=== PATIENT | female | born 1980 | race Caucasian/White ===

== ENCOUNTER 2019-11-25 17:33 | Emergency (ER) | payer SELFPAY ==
--- NOTE | 2019-11-25 17:44 | ED_ITS ---
Entered by Angelique Ga, acting as scribe for Nov 25, 2019 17:33 Documented by User: Arely Ortiz 11/26/19 00:17 HPI - General Adult General: Chief complaint: Abdominal Pain Stated complaint: ABD PAIN Time Seen by Provider: 11/25/19 17:50 Review of Systems GI: Reports: abdominal pain PFS ED PFSH: Medical History Anxiety Hypertension Social History Smoking and tobacco status: current every day smoker Course Vital Signs: Vital signs: Vital Signs Temperature 98.2 F 11/26/19 00:01 Pulse Rate 81 11/26/19 00:01 Respiratory Rate 18 11/26/19 00:01 Blood Pressure 189/124 11/26/19 00:01 Pulse Oximetry 97 11/26/19 00:01 MDM - General Adult MDM Narrative: Medical decision making narrative: Patient comes in complaining of right upper quadrant abdominal pain but also complained of sharp right lower quadrant pain. Ultrasound of her pelvis reveals no evidence of ovarian torsion or cyst. CT scan does not show appendicitis. Patient CT showed a possible dilated common bile duct but ultrasound did not cooperate this. I called the [facility] radiologist to reconcile this and he states he believes the ultrasound is more accurate and will amend his CT scan. The patient's liver enzymes and lipase are all normal. I reviewed the entire case with Dr. Méndez who states he believes the patient can go home and does not need an [facility]. He will see the patient in his clinic tomorrow. I have reviewed this plan with the patient and she is in agreement. She declines any further testing and would like to be discharged. Lab Data: Labs: Lab Results 11/25/19 11/25/19 11/25/19 Range/Units 17:53 17:53 18:02 WBC 7.8 (4.0-10.0) 10^3/ uL RBC 5.06 (4.1-5.3) 10^6/u L Hgb 17.0 H (11.5-15.3) g/dL Hct 51.5 H (37.0-47.0) % MCV 101.8 H (81-99) fL MCH 33.6 (28.0-34.0) pg MCHC 33.0 (30.0-36.0) g/dL RDW 12.3 (12.1-15.1) % Plt Count 275 (130-400) 10^3/c mm MPV 10.4 (7.4-10.4) fL Neut % (Auto) 64.1 % Lymph % (Auto) 27.0 % [place] % (Auto) 7.4 % Eos % (Auto) 0.9 % Baso % (Auto) 0.5 % Neut # (Auto) 5.0 (1.8-7.7) 10^3/u L Lymph # (Auto) 2.1 (0.8-4.8) 10^3/u L [place] # (Auto) 0.6 (0.2-0.9) 10^3/u L Eos # (Auto) 0.1 (0.0-0.8) 10^3/u L Baso # (Auto) 0.0 (0.0-0.1) 10^3/u L Nucleated RBC % (a uto) 0 % Nucleated RBCs # 0.0 /100WBC Sodium (136-145) mmol/L Potassium (3.5-5.1) mmol/L Chloride (98-107) mmol/L Carbon Dioxide (22-29) mmol/L Anion Gap (5-19) BUN (6-20) mg/dL Creatinine (0.5-0.9) mg/dL GFR Calculation (90-130) mL/min Glucose (65-115) mg/dL Calcium (8.5-10.5) mg/dL Total Bilirubin (0.15-1.2) mg/dL AST (0-32) U/L ALT (0-33) U/L Alkaline Phosphata se (35-105) IU/L Total Protein (6.6-8.7) g/dL Albumin (3.5-5.2) g/dL Globulin (1.3-4.6) g/dL Lipase (13-60) U/L HCG, Qual Negative (Negative) Urine Color Yellow (Yellow) Urine Appearance Clear (CLEAR) Urine pH 7 (5-7) Ur Specific Gravit y 1.010 (1.005-1.030) Urine Protein Neg (Negative) Urine Glucose (UA) Norm (Normal) Urine Ketones Negative (Negative) Urine Occult Blood Neg (Negative) Urine Nitrate Negative (Negative) Urine Bilirubin Neg (NEGATIVE) Urine Urobilinogen Norm (Negative) mg/dL Ur Leukocyte Elise ase Negative (Negative) 11/25/19 Range/Units 18:02 WBC (4.0-10.0) 10^3/ uL RBC (4.1-5.3) 10^6/u L Hgb (11.5-15.3) g/dL Hct (37.0-47.0) % MCV (81-99) fL MCH (28.0-34.0) pg MCHC (30.0-36.0) g/dL RDW (12.1-15.1) % Plt Count (130-400) 10^3/c mm MPV (7.4-10.4) fL Neut % (Auto) % Lymph % (Auto) % [place] % (Auto) % Eos % (Auto) % Baso % (Auto) % Neut # (Auto) (1.8-7.7) 10^3/u L Lymph # (Auto) (0.8-4.8) 10^3/u L [place] # (Auto) (0.2-0.9) 10^3/u L Eos # (Auto) (0.0-0.8) 10^3/u L Baso # (Auto) (0.0-0.1) 10^3/u L Nucleated RBC % (a uto) % Nucleated RBCs # /100WBC Sodium 139 (136-145) mmol/L Potassium 4.0 (3.5-5.1) mmol/L Chloride 100 (98-107) mmol/L Carbon Dioxide 28 (22-29) mmol/L Anion Gap 15.0 (5-19) BUN 16 (6-20) mg/dL Creatinine 0.8 (0.5-0.9) mg/dL GFR Calculation 79.0 L (90-130) mL/min Glucose 89 (65-115) mg/dL Calcium 10.1 (8.5-10.5) mg/dL Total Bilirubin 0.4 (0.15-1.2) mg/dL AST 23 (0-32) U/L ALT 18 (0-33) U/L Alkaline Phosphata se 99 (35-105) IU/L Total Protein 8.1 (6.6-8.7) g/dL Albumin 4.8 (3.5-5.2) g/dL Globulin 3.3 (1.3-4.6) g/dL Lipase 26 (13-60) U/L HCG, Qual (Negative) Urine Color (Yellow) Urine Appearance (CLEAR) Urine pH (5-7) Ur Specific Gravit y (1.005-1.030) Urine Protein (Negative) Urine Glucose (UA) (Normal) Urine Ketones (Negative) Urine Occult Blood (Negative) Urine Nitrate (Negative) Urine Bilirubin (NEGATIVE) Urine Urobilinogen (Negative) mg/dL Ur Leukocyte Elise ase (Negative) Imaging Data^: CT Abd/Pel: Radiologist's impression: [place] [address] CT Scan Report Signed Patient: Roxanne Knowles #: [id number] : 1980Acct#:[id number] Age/Sex: 39 / FADM Date: 11/25/19 Loc: ERRoom/Bed: Attending Dr: Ordering Provider/Ordering MD: Arely Ortiz DO Date of Service: 11/25/19 Procedure(s): CT abdomen pelvis w con* [id number] Accession Number(s): [id number] Report Number: [id number] PROCEDURE INFORMATION: Exam: CT Abdomen And Pelvis With Contrast Exam date and time: 11/25/2019 8:17 PM Age: 39 years old Clinical indication: Abdominal pain; Localized; Right; Patient HX: C/O R sided abd pain w n/v TECHNIQUE: Imaging protocol: Computed tomography of the abdomen and pelvis with intravenous contrast. Total DLP: 734.82 mGy-cm Radiation optimization: All CT scans at this facility use at least one of these dose optimization techniques: automated exposure control; mA and/or kV adjustment per patient size (includes targeted exams where dose is matched to clinical indication); or iterative reconstruction. Contrast material: OMNI 300; Contrast volume: 95 ml; Contrast route: 20G; COMPARISON: US pelvic complete* [id number] 11/25/2019 6:56 PM FINDINGS: Mild patchy atelectasis at bilateral lung bases. Minimal intrahepatic biliary dilation. The common bile duct is dilated to 1.1 cm maximally. No obstructing stone or mass directly observed. The gallbladder, spleen, pancreas, adrenal glands, and right kidney are unremarkable. There is a 1 cm stone in the left mid kidney. A normal-appearing appendix is seen in the right lower quadrant. No evidence of bowel obstruction. No evidence of diverticulitis. No free intraperitoneal air identified. Trace free fluid the pelvis, which may be physiologic. The bladder and uterus are unremarkable. Prominent follicle in the left ovary. The abdominal aorta is nonaneurysmal. Mild degenerative disc disease at L4-L5. CT/CT abdomen pelvis w con* [id number] IMPRESSION: 1. Intrahepatic and extrahepatic biliary dilation, overall mild. No cause directly observed. Radiation Dose CTDIVOL = (mGy): DLP = 734.82 (mGy-cm) US: Radiologist's impression: [address] [place] [address] Ultrasound Report Signed Patient: Roxanne Knowles #: [id number] : 1980Acct#:[id number] Age/Sex: 39 / FADM Date: 11/25/19 Loc: ERRoom/Bed: Attending Dr: Ordering Provider/Ordering MD: Arely Ortiz DO Date of Service: 11/25/19 Procedure(s): US pelvic complete* [id number] Accession Number(s): [id number] Report Number: [id number] PROCEDURE INFORMATION: Exam: US Pelvis Complete, Transabdominal Exam date and time: 11/25/2019 6:38 PM Age: 39 years old Clinical indication: Abdominal pain; Right lower quadrant TECHNIQUE: Imaging protocol: Real-time transabdominal pelvic ultrasound with image documentation. Complete exam. COMPARISON: US pelvic with transvaginal 04/23/2015 11:00 AM FINDINGS: The uterus is anteverted and measures 7.7 cm x 4.7 cm by 7.2 cm. Endometrial stripe thickness within normal limits at roughly 1.3 cm. The right ovary measures 2.9 cm x 2.2 cm by 1.8 cm and is unremarkable. Vascular flow is detected in the right ovary. The left ovary measures 3.0 cm by 2.6 cm x 2.2 cm and is unremarkable. Vascular flow is detected in the left ovary. No free fluid identified in the pelvic cul-de-sac. The bladder is unremarkable as shown. US/US pelvic complete* [id number] IMPRESSION: 1. The uterus and ovaries are sonographically unremarkable. bladder US: Radiologist's impression: [address] [place] [address] Ultrasound Report Signed with Addenda Patient: Roxanne Knowles #: [id number] : 1980Acct#:[id number] Age/Sex: 39 / FADM Date: 11/25/19 Loc: ERRoom/Bed: Attending Dr: Ordering Provider/Ordering MD: Kraig Le DO Date of Service: 11/25/19 Procedure(s): US gall bladder [id number] Accession Number(s): [id number] Report Number: [id number] ADDENDUM US/US gall bladder [id number] Overall, biliary obstruction is considered unlikely. Addendum Dictated By: Philippe Melo MD Addendum Signed By: Philippe Melo MDSigned Date/Time:11/25/19 2326 Addendum Cosigned By: PROCEDURE INFORMATION: Exam: US Abdomen Limited, Right Upper Quadrant Exam date and time: 11/25/2019 6:38 PM Age: 39 years old Clinical indication: Abdominal pain; Generalized; Additional info: Abd pain - ruq TECHNIQUE: Imaging protocol: Real-time ultrasound of the abdomen with image documentation. Examination was focused on the right upper quadrant. COMPARISON: No relevant prior studies available. FINDINGS: Visualized portions of the inferior vena cava are unremarkable. Visualized portions of the liver demonstrate normal contour and echogenicity. No intrahepatic or extrahepatic biliary dilation identified. The common bile duct is within normal limits for caliber at 0.4 cm. There is a 1.8 cm stone in the body of the gallbladder. No sludge, gallbladder wall thickening, or pericholecystic fluid identified. Visualized portion of the pancreas is unremarkable. The right kidney measures 9.8 cm in length and is unremarkable. No hydronephrosis, calculi, or masses identified involving the right kidney. No free intra-abdominal fluid is seen. US/US gall bladder 18186 IMPRESSION: 1. Cholelithiasis. Discharge Plan Discharge Patient Disposition: Home, Self-Care Clinical Impression: Abdominal pain Qualifiers: Abdominal location: right upper quadrant Qualified Code(s): R10.11 - Right upper quadrant pain Condition: Stable Discharge Orders: Discharge Order (Routine); Ordered 11/25/19 Ordered By: Arely Ortiz Referrals: Jennifer Arnold FNP [Primary Care Provider] - Raudel Méndez MD [Physician] - 1-3 days (Call Dr. Méndez's office first thing in the morning as he has assured me that he will fit you in his schedule tomorrow for recheck.) Discharge Diet: Clear Liquid Discharge Activity: Increase activity as tolerated Patient Instructions: Cholecystitis (ED), Abdominal Pain (ED) Activity Restrictions/Additional Instructions: Please return to the ER immediately for any of the signs or symptoms listed on your discharge instruction sheets, worsening/changing of your symptoms, you are not getting better as quickly as expected, or for ANY other cause or concerns. Return to the ER for return of your pain, fever, vomiting, worsening of your symptoms, or for any other cause for concern. Discharge Date/Time: 11/26/19 00:04 Coding Level of Care Code ED Screw Machine Operator for Chg Fwd Exam Comprehensive Documented by User: Kraig Le DO 11/26/19 12:48 HPI - General Adult General: Chief complaint: Abdominal Pain Stated complaint: ABD PAIN Time Seen by Provider: 11/25/19 17:50 History of Present Illness: HPI narrative: 39 yo female presents with abd pain. Pt states that she has pain in her RLQ and states that the pain is getting worse. Pt states that she feels nauseated. She has had this intermittently in the past. She is not had any vomiting with it but has had nausea. She denies hematochezia melena hematemesis coffee-ground emesis dysuria urgency or frequency. complaint: abd pain. Onset (ago): week(s) (2) Location: abdomen Severity: moderate Quality: stabbing Pain Consistency: constant Relieving factors: none Exacerbating factors: none Associated symptoms: Reports nausea; Deny chest pain, dyspnea, malaise or rash Review of Systems Const: Denies: fever, chills, body aches, change in appetite, fatigue or malaise ENMT: Denies: throat pain, ear pain, nasal discharge or nasal congestion Card: Denies: chest pain, edema, shortness of breath on exertion or shortness of breath when lying down Resp: Denies: shortness of breath, productive cough or non-productive cough GI: Reports: nausea and diarrhea : Denies: flank pain, difficulty urinating, painful urination, urinary frequency or urinary urgency Skin/Breast: Denies: rash or itching PFSH ED PFSH: Medical History Anxiety Hypertension Social History Smoking and tobacco status: current every day smoker Physical Exam Const: COMMON NORMALS: no apparent distress GENERAL APPEARANCE: cooperative and comfortable ORIENTATION/CONSCIOUSNESS: Yes awake, Yes oriented to person, Yes oriented to place and Yes oriented to time HENMT: COMMON NORMALS: normocephalic, head/scalp atraumatic, hearing grossly normal bilaterally, external ears normal, EAC's normal, TM's normal bilaterally, nasal mucous membranes and turbinates normal, moist oral mucous membranes and oropharynx normal HEAD & SCALP: normocephalic and atraumatic NOSE: nasal mucous membranes and turbinates normal EXTERNAL EAR: Yes external ears normal EXTERNAL AUDITORY CANAL: EAC's normal TYMPANIC MEMBRANE: TM's normal bilaterally Eye: COMMON NORMALS: PERRL, EOMs intact bilaterally, conjunctivae normal and no scleral icterus CONJUNCTIVA: Yes conjunctivae normal PUPIL: Yes PERRL Neck/C-Spine: COMMON NORMALS: full ROM, no lymphadenopathy, supple and no JVD Lymph: LYMPHATIC: no lymphadenopathy noted and no lymphedema noted Resp: COMMON NORMALS: normal respiratory effort, no retractions, no use of accessory muscles and clear to auscultation bilaterally AUSCULTATION: clear to auscultation bilaterally Cardio: COMMON NORMALS: no JVD, regular rate, regular rhythm and no murmurs RATE: regular rate RHYTHM: regular rhythm GI: PALPATION: Yes tender Details: RLQ and RUQ Extremity: COMMON NORMALS: normal to inspection, normal capillary refill, no clubbing, cyanosis or edema, no calf tenderness and no pedal edema Neuro: SENSORIUM/ORIENTATION: Yes oriented to person, Yes oriented to place and Yes oriented to time Skin: COMMON NORMALS: no rashes or lesions noted GENERAL SKIN EXAM: no rashes or lesions noted Course ED course: Change of shift care transferred to Dr. Antony see his notes. Vital Signs: Vital signs: Vital Signs Temperature 98.2 F 11/26/19 00:01 Pulse Rate 81 11/26/19 00:01 Respiratory Rate 18 11/26/19 00:01 Blood Pressure 189/124 11/26/19 00:01 Pulse Oximetry 97 11/26/19 00:01 MDM - General Adult Lab Data: Labs: Lab Results 11/25/19 11/25/19 11/25/19 Range/Units 17:53 17:53 18:02 WBC 7.8 (4.0-10.0) 10^3/ uL RBC 5.06 (4.1-5.3) 10^6/u L Hgb 17.0 H (11.5-15.3) g/dL Hct 51.5 H (37.0-47.0) % MCV 101.8 H (81-99) fL MCH 33.6 (28.0-34.0) pg MCHC 33.0 (30.0-36.0) g/dL RDW 12.3 (12.1-15.1) % Plt Count 275 (130-400) 10^3/c mm MPV 10.4 (7.4-10.4) fL Neut % (Auto) 64.1 % Lymph % (Auto) 27.0 % [place] % (Auto) 7.4 % Eos % (Auto) 0.9 % Baso % (Auto) 0.5 % Neut # (Auto) 5.0 (1.8-7.7) 10^3/u L Lymph # (Auto) 2.1 (0.8-4.8) 10^3/u L [place] # (Auto) 0.6 (0.2-0.9) 10^3/u L Eos # (Auto) 0.1 (0.0-0.8) 10^3/u L Baso # (Auto) 0.0 (0.0-0.1) 10^3/u L Nucleated RBC % (a uto) 0 % Nucleated RBCs # 0.0 /100WBC Sodium (136-145) mmol/L Potassium (3.5-5.1) mmol/L Chloride (98-107) mmol/L Carbon Dioxide (22-29) mmol/L Anion Gap (5-19) BUN (6-20) mg/dL Creatinine (0.5-0.9) mg/dL GFR Calculation (90-130) mL/min Glucose (65-115) mg/dL Calcium (8.5-10.5) mg/dL Total Bilirubin (0.15-1.2) mg/dL AST (0-32) U/L ALT (0-33) U/L Alkaline Phosphata se (35-105) IU/L Total Protein (6.6-8.7) g/dL Albumin (3.5-5.2) g/dL Globulin (1.3-4.6) g/dL Lipase (13-60) U/L HCG, Qual Negative (Negative) Urine Color Yellow (Yellow) Urine Appearance Clear (CLEAR) Urine pH 7 (5-7) Ur Specific Gravit y 1.010 (1.005-1.030) Urine Protein Neg (Negative) Urine Glucose (UA) Norm (Normal) Urine Ketones Negative (Negative) Urine Occult Blood Neg (Negative) Urine Nitrate Negative (Negative) Urine Bilirubin Neg (NEGATIVE) Urine Urobilinogen Norm (Negative) mg/dL Ur Leukocyte Elise ase Negative (Negative) 11/25/19 Range/Units 18:02 WBC (4.0-10.0) 10^3/ uL RBC (4.1-5.3) 10^6/u L Hgb (11.5-15.3) g/dL Hct (37.0-47.0) % MCV (81-99) fL MCH (28.0-34.0) pg MCHC (30.0-36.0) g/dL RDW (12.1-15.1) % Plt Count (130-400) 10^3/c mm MPV (7.4-10.4) fL Neut % (Auto) % Lymph % (Auto) % [place] % (Auto) % Eos % (Auto) % Baso % (Auto) % Neut # (Auto) (1.8-7.7) 10^3/u L Lymph # (Auto) (0.8-4.8) 10^3/u L [place] # (Auto) (0.2-0.9) 10^3/u L Eos # (Auto) (0.0-0.8) 10^3/u L Baso # (Auto) (0.0-0.1) 10^3/u L Nucleated RBC % (a uto) % Nucleated RBCs # /100WBC Sodium 139 (136-145) mmol/L Potassium 4.0 (3.5-5.1) mmol/L Chloride 100 (98-107) mmol/L Carbon Dioxide 28 (22-29) mmol/L Anion Gap 15.0 (5-19) BUN 16 (6-20) mg/dL Creatinine 0.8 (0.5-0.9) mg/dL GFR Calculation 79.0 L (90-130) mL/min Glucose 89 (65-115) mg/dL Calcium 10.1 (8.5-10.5) mg/dL Total Bilirubin 0.4 (0.15-1.2) mg/dL AST 23 (0-32) U/L ALT 18 (0-33) U/L Alkaline Phosphata se 99 (35-105) IU/L Total Protein 8.1 (6.6-8.7) g/dL Albumin 4.8 (3.5-5.2) g/dL Globulin 3.3 (1.3-4.6) g/dL Lipase 26 (13-60) U/L HCG, Qual (Negative) Urine Color (Yellow) Urine Appearance (CLEAR) Urine pH (5-7) Ur Specific Gravit y (1.005-1.030) Urine Protein (Negative) Urine Glucose (UA) (Normal) Urine Ketones (Negative) Urine Occult Blood (Negative) Urine Nitrate (Negative) Urine Bilirubin (NEGATIVE) Urine Urobilinogen (Negative) mg/dL Ur Leukocyte Elise ase (Negative) Discharge Plan Discharge Patient Disposition: Home, Self-Care Clinical Impression: Abdominal pain Qualifiers: Abdominal location: right upper quadrant Qualified Code(s): R10.11 - Right upper quadrant pain Condition: Stable Discharge Orders: Discharge Order (Routine); Ordered 11/25/19 Ordered By: Arely Ortiz Referrals: Jennifer Arnold FNP [Primary Care Provider] - Raudel Méndez MD [Physician] - 1-3 days (Call Dr. Méndez's office first thing in the morning as he has assured me that he will fit you in his schedule tomorrow for recheck.) Discharge Diet: Clear Liquid Discharge Activity: Increase activity as tolerated Patient Instructions: Cholecystitis (ED), Abdominal Pain (ED) Activity Restrictions/Additional Instructions: Please return to the ER immediately for any of the signs or symptoms listed on your discharge instruction sheets, worsening/changing of your symptoms, you are not getting better as quickly as expected, or for ANY other cause or concerns. Return to the ER for return of your pain, fever, vomiting, worsening of your symptoms, or for any other cause for concern. Discharge Date/Time: 11/26/19 00:04 Coding Level of Care Code ED Screw Machine Operator for Chg Fwd Exam Comprehensive The documentation recorded by the Harmeet herrera Kialy, accurately reflects the service I personally performed and the decisions made by , Kraig Le DO Nov 25, 2019 17:33
[2019-11-25 17:45] VITALS: BP 186/136; PULSE 92; RESP 18; TEMP 36.8; O2SAT 99; BMI 29.6
--- NOTE | 2019-11-25 17:50 | USR_ITS ---
PROCEDURE INFORMATION: Exam: US Abdomen Limited, Right Upper Quadrant Exam date and time: 11/25/2019 6:38 PM Age: 39 years old Clinical indication: Abdominal pain; Generalized; Additional info: Abd pain - ruq TECHNIQUE: Imaging protocol: Real-time ultrasound of the abdomen with image documentation. Examination was focused on the right upper quadrant. COMPARISON: No relevant prior studies available. FINDINGS: Visualized portions of the inferior vena cava are unremarkable. Visualized portions of the liver demonstrate normal contour and echogenicity. No intrahepatic or extrahepatic biliary dilation identified. The common bile duct is within normal limits for caliber at 0.4 cm. There is a 1.8 cm stone in the body of the gallbladder. No sludge, gallbladder wall thickening, or pericholecystic fluid identified. Visualized portion of the pancreas is unremarkable. The right kidney measures 9.8 cm in length and is unremarkable. No hydronephrosis, calculi, or masses identified involving the right kidney. No free intra-abdominal fluid is seen. US/US gall bladder [id number] IMPRESSION: 1. Cholelithiasis.
[2019-11-25 18:10] LABS: Basophils % 0.5 %; Eosinophils # 0.1 10^3/uL (0.0-0.8); Eosinophils % 0.9 %; Hematocrit 51.5 % (37.0-47.0); Lymphocytes # 2.1 10^3/uL (0.8-4.8); Mean Corpuscular Hemoglobin 33.6 pg (28.0-34.0); Mean Corpuscular Volume 101.8 fL (81-99); Mean Platelet Volume 10.4 fL (7.4-10.4); Monocytes # 0.6 10^3/uL (0.2-0.9); Monocytes % 7.4 %; Neutrophils % 64.1 %; Nucleated Red Blood Cells % 0 %; Platelet Count 275 10^3/cmm (130-400); Red Blood Count 5.06 10^6/uL (4.1-5.3); Red Cell Distribution Width 12.3 % (12.1-15.1); White Blood Count 7.8 10^3/uL (4.0-10.0)
[2019-11-25 18:11] LABS: Add Urine Microscopic? NO
[2019-11-25 18:14] LABS: Bilirubin Urine Neg (NEGATIVE); Blood Urine Neg (Negative); Glucose Urine UA Norm (Normal); Ketones Urine Negative (Negative); Leukocyte Esterase Urine Negative (Negative); Nitrate Urine Negative (Negative); Protein Urine Neg (Negative); Urine Appearance Clear (CLEAR); Urine Color Yellow (Yellow); Urobilinogen Urine Norm (Negative); pH Urine 7 (5-7)
[2019-11-25 18:16] LABS: HCG Qualitative Urine. Negative (Negative)
--- NOTE | 2019-11-25 18:24 | USR_ITS ---
PROCEDURE INFORMATION: Exam: US Pelvis Complete, Transabdominal Exam date and time: 11/25/2019 6:38 PM Age: 39 years old Clinical indication: Abdominal pain; Right lower quadrant TECHNIQUE: Imaging protocol: Real-time transabdominal pelvic ultrasound with image documentation. Complete exam. COMPARISON: US pelvic with transvaginal 04/23/2015 11:00 AM FINDINGS: The uterus is anteverted and measures 7.7 cm x 4.7 cm by 7.2 cm. Endometrial stripe thickness within normal limits at roughly 1.3 cm. The right ovary measures 2.9 cm x 2.2 cm by 1.8 cm and is unremarkable. Vascular flow is detected in the right ovary. The left ovary measures 3.0 cm by 2.6 cm x 2.2 cm and is unremarkable. Vascular flow is detected in the left ovary. No free fluid identified in the pelvic cul-de-sac. The bladder is unremarkable as shown. US/US pelvic complete* [id number] IMPRESSION: 1. The uterus and ovaries are sonographically unremarkable.
[2019-11-25 18:32] LABS: Alanine Aminotransferase 18 U/L (0-33); Albumin Level 4.8 g/dL (3.5-5.2); Alkaline Phosphatase 99 IU/L (35-105); Aspartate Amino Transferase 23 U/L (0-32); Blood Urea Nitrogen 16 mg/dL (6-20); Calcium 10.1 mg/dL (8.5-10.5); Carbon Dioxide 28 mmol/L (22-29); Chloride 100 mmol/L (98-107); Globulin 3.3 g/dL (1.3-4.6); Glucose 89 mg/dL (65-115); Lipase 26 U/L (13-60); Sodium 139 mmol/L (136-145); Total Bilirubin 0.4 mg/dL (0.15-1.2); Total Protein 8.1 g/dL (6.6-8.7)
[2019-11-25 18:36] VITALS: RESP 17; O2SAT 99
[2019-11-25] MEDS: ondansetron 2 mg/ML SDV 2 mL 4 MG IVP (18:36)
[2019-11-25] MEDS: HYDROmorphone 1 mg/mL INJ 1 mL 0.5 MG IVP ×2 (18:36→23:39)
[2019-11-25] MEDS: sodium chloride 0.9% 1,000 ML 999 ML IV (18:36)
[2019-11-25 18:42] VITALS: BP 163/115; PULSE 73; RESP 17; O2SAT 99
--- NOTE | 2019-11-25 19:07 | CTR_ITS ---
PROCEDURE INFORMATION: Exam: CT Abdomen And Pelvis With Contrast Exam date and time: 11/25/2019 8:17 PM Age: 39 years old Clinical indication: Abdominal pain; Localized; Right; Patient HX: C/O R sided abd pain w n/v TECHNIQUE: Imaging protocol: Computed tomography of the abdomen and pelvis with intravenous contrast. Total DLP: 734.82 mGy-cm Radiation optimization: All CT scans at this facility use at least one of these dose optimization techniques: automated exposure control; mA and/or kV adjustment per patient size (includes targeted exams where dose is matched to clinical indication); or iterative reconstruction. Contrast material: OMNI 300; Contrast volume: 95 ml; Contrast route: 20G; COMPARISON: US pelvic complete* [id number] 11/25/2019 6:56 PM FINDINGS: Mild patchy atelectasis at bilateral lung bases. Minimal intrahepatic biliary dilation. The common bile duct is dilated to 1.1 cm maximally. No obstructing stone or mass directly observed. The gallbladder, spleen, pancreas, adrenal glands, and right kidney are unremarkable. There is a 1 cm stone in the left mid kidney. A normal-appearing appendix is seen in the right lower quadrant. No evidence of bowel obstruction. No evidence of diverticulitis. No free intraperitoneal air identified. Trace free fluid the pelvis, which may be physiologic. The bladder and uterus are unremarkable. Prominent follicle in the left ovary. The abdominal aorta is nonaneurysmal. Mild degenerative disc disease at L4-L5. CT/CT abdomen pelvis w con* [id number] IMPRESSION: 1. Intrahepatic and extrahepatic biliary dilation, overall mild. No cause directly observed. Radiation Dose CTDIVOL = (mGy): DLP = 734.82 (mGy-cm)
[2019-11-25] MEDS: iohexol 300 mg/mL 100 mL Btl IV (20:19)
[2019-11-25 23:13] VITALS: RESP 18
[2019-11-25] MEDS: morphine 4 mg/mL SDV 1 mL IVP (23:13)
[2019-11-25 23:39] VITALS: RESP 18
--- NOTE | 2019-11-25 23:53 | PC.NURSE ---
Patient bp still elevated, patient states she will follow up with her pcp to get on bp meds. informed of vs, ok to dc at this time.
[2019-11-25 23:55] VITALS: BP 189/124; PULSE 81; RESP 16; O2SAT 98
[2019-11-26 00:01] VITALS: BP 189/124; PULSE 81; RESP 18; TEMP 36.8; O2SAT 97
== END 2019-11-26 00:04 | disposition home or self-care (01) ==
PROVIDERS: Family Medicine; Emergency Provider Emergency Medicine; Family Provider Nurse Practitioner Family; PCP Nurse Practitioner Family
DX: R10.31 Right lower quadrant pain (principal); R10.11 Right upper quadrant pain; I10 Essential (primary) hypertension; F17.200 Nicotine dependence, unspecified, uncomplicated
CPT/HCPCS: 36415; 74177; 76705; 76856; 80053; 81003; 81025; 83690; 85025; 96361; 96374; 96375; 96376; 99282; 99284; J1170; J2270; J2405; J7030; Q9967

== ENCOUNTER 2019-11-27 08:58 | Day surgery (SDC) | payer SELFPAY ==
[2019-11-27] VITALS (17 sets, daily range): BP systolic 122–141; BP diastolic 79–96; PULSE 75–84; RESP 15–24; TEMP 36.2–36.4; O2SAT 92–98
--- NOTE | 2019-11-27 07:41 | W.PM.OPSUD ---
Surgery/Procedure H&P Update DATE OF PROCEDURE: November 27, 2019 DATE H&P PERFORMED: 11/26/19 H&P UPDATE INFORMATION: I have reviewed H&P completed within last 30 days, I have examined patient prior to procedure and No changes to prior documentation PLANNED PROCEDURE: Operation Date: 11/27/19 11:00 Proposed Procedures p Laparoscopic Cholecystectomy 67303 R10.9(Not Applicable) - Raudel Méndez MD
--- NOTE | 2019-11-27 09:38 | ANES.PREANE2 ---
Pre-Anesthetic Assessment Pre-Anesthetic Assessment: Height/Weight: Height 1.55 m Weight 69.853 kg Preop Diagnosis: Cholelithiasis Proposed Procedure: Operation Date: 11/27/19 11:00 Proposed Procedures p Laparoscopic Cholecystectomy 97773 R10.9(Not Applicable) - Raudel Méndez MD Familial anesthetic complications: nONE Was Beta Dao taken within 24 hours: N/A Last intake: Intake Last Liquid Date 11/26/19 Last Liquid Time 17:00 Last Solid Date 11/26/19 Last Solid Time 17:00 Social: Social History: Tobacco Packs per day: 1 PPD Exam: Pre-Anes Outpt Exam: alert, oriented x 3, clear to auscultation bilaterally and regular rate & rhythm Airway: Cervical ROM: WNL MP: 2 Dentition: Full Pulmonary: Pulmonary: None reported CV/HEM: CV/HEM: HTN Comments: Not on meds yet for HTN, unable to afford medications : : None reported Hepatic: Hepatic: None reported GI: GI: None reported Metabolic: Metabolic: None reported Musc/skel: Musc/skel: None reported Neuropsych: Neuropsych: None reported Anesthetic Plan: ASA status: 2 Anesthesia: General Risk of > 500 ml blood loss (7ml/kg in children): No PFSH Anesthesia PFSH: Social History Smoking and tobacco status: current every day smoker Alcohol intake: never Lives independently: Yes Household members: family Current occupational status: employed History of recent travel: No Female Reproductive History: Date of last menstrual period: 11/11/19 Data Anesthesia Cardiac Studies: No Data to Display
[2019-11-27 09:51] LABS: OR HCG Qualitative Urine Negative (Negative)
[2019-11-27] MEDS: sodium chloride 0.9% 1,000 ML 30 ML IV (09:54)
[2019-11-27] MEDS: midazolam 1 mg/mL INJ 2 mL 2 MG IVP (10:11)
--- NOTE | 2019-11-27 11:24 | P.OP_ITS ---
Operative Report Date of procedure: November 27, 2019 Pre-op Diagnosis: Cholelithiasis Post-op diagnosis: same Procedure Done: Laparoscopic cholecystectomy Pathology: Gallbladder Surgeon: Raudel Méndez Anesthesia: General Condition: stable Disposition: PACU Procedure: The patient was taken to the operating room and was intubated under general anesthesia. After the antibiotic had been administered, the abdomen was prepped and draped in a sterile manner. Using a #15 blade, a 1 centimeter infraumbilical curvilinear incision was made and using an open Pam technique the peritoneal cavity was entered. A 10 millimeter port was placed and 15 mi llimeters of pneumoperitoneum was created. A 10 millimeter, 30 degrees scope was then introduced. Three 5 millimeter ports were placed in the epigastric, midclavicular and the anterior axillary line two fingerbreadths below the costal margin on the right side under the direct visualization. Ratcheted forceps were introduced into the lateral most port and was used to retract the fundus of the gallbladder cephalad and using forceps the infundibulum of the gallbladder was retracted laterally. Using L-hook cautery the peritoneum overlying the Calot's triangle was opened medially and laterally until the cystic duct and the cystic artery were skeletonized. Dissection was carried along the body of the gallbladder and after ensuring critical view of safety, 4 clips applied on the cystic duct and 3 clips applied on the cystic artery and cut leaving, 3 clips on the remaining portion of the duct and 2 clips on the remaining portion of the artery. The rest of the gallbladder was dissected off the liver using L-hook cautery. There was no bleeding or bile leaking noted from the gallbladder fossa and the clips appeared to be in place. An EndoCatch bag was introduced to remove the gallbladder. All the ports were removed under direct visualization and there was no bleeding noted from the port sites. The fascia of the umbilicus was closed using [id number] 0 Vicryl sutures and the subcutaneous tissue was approximated using 3-0 Vicryl sutures. The skin at all four ports were closed using 4-0 Monocryl and Dermabond. A total of 10 millimeters of 0.5% Marcaine was infiltrated around the port sites. The patient was stable throughout the procedure.
[2019-11-27] MEDS: fentaNYL 50 mcg/mL INJ 2mL IVP ×2 (11:37→11:47)
--- NOTE | 2019-11-27 11:40 | SUR.PHASEI ---
1131 PATIENT TO PACU AT THIS TIME. RR EVEN AND UNLABORED. PLACED ON SIMPLE MASK AT 8L, SPO2 95%. INCISIONS TO ABDOMEN, CDI, CLOSED WITH EXOFIN. PATIENT RESPONDS TO VERBAL STIMULI.
[2019-11-27] MEDS: ondansetron 2 mg/ML SDV 2 mL 4 MG IVP ×2 (11:59→14:10)
[2019-11-27] MEDS: morphine 4 mg/mL SDV 1 mL 2 MG IVP ×2 (12:00→12:08)
--- NOTE | 2019-11-27 12:09 | SUR.PHASEI ---
1209 PATIENT CONTINUES TO RATE PAIN 8/10, WHEN WOKE UP. PATIENT NOTED TO BE RESTING WITH EYES CLOSED, NO DISTRESS. SEE VITALS.
--- NOTE | 2019-11-27 12:30 | SUR.PHASEI ---
1226 PATIENT TO OPS AT THIS TIME. RR EVEN AND UNLABORED. RATES PAIN 8/10, SEE VITALS. PATIENT RESTING WITH EYES CLOSED, INCISIONS TO ABDOMEN, CDI.
== END 2019-11-27 14:20 | disposition home or self-care (01) ==
PROVIDERS: Family Provider Nurse Practitioner Family; PCP Family Medicine; Visit Provider Surgery
PROC: 0FT44ZZ Resection of Gallbladder, Percutaneous Endoscopic Approach (ICD-10-PCS; CPT 47562; principal; 2019-11-27 10:10)
DX: K80.10 Calculus of gallbladder with chronic cholecystitis without obstruction (principal); I10 Essential (primary) hypertension; F17.210 Nicotine dependence, cigarettes, uncomplicated; F41.9 Anxiety disorder, unspecified
CPT/HCPCS: 47562; 12345; 81025; 84703; 88304; 96374; 96375; J0360; J0690; J2001; J2250; J2270; J2405; J2704; J3010; J3490; J7030

== ENCOUNTER 2019-12-02 21:34 | Emergency (ER) | payer SELFPAY ==
[2019-12-02 21:36] VITALS: BP 204/111; PULSE 82; RESP 15; TEMP 36.7; O2SAT 99; BMI 29.6
--- NOTE | 2019-12-02 21:58 | W.ED.ABDPA2 ---
HPI - Abdominal Pain General: Chief Complaint: Abdominal Pain Stated Complaint: pain/swelling post gallbladder surgery Time Seen by Provider: 12/02/19 21:58 Source: patient Mode of arrival: ambulatory Limitations: no limitations History of Present Illness: HPI narrative: Patient is a 39-year-old female who is approximately 5 days post cholecystectomy here for redness, warmth, and swelling around her periumbilical laparoscpic incision. Patient states Dr. Méndez saw her earlier today and prescribed cephalexin however she was not able to get this filled and states in the short amount of time after seeing Dr. Méndez the redness and swelling has continued to worsen. She has not been running fevers. MD elicited complaint: abdominal pain Onset (ago): day(s) Pain Consistency: constant Location: Periumbilical Relieving factors: nothing Associated Symptoms: Reports no associated symptoms; Denies change in bowel habits, change in stool character, chills, diarrhea, dysuria, fever(s), hematochezia, nausea, syncope and vomiting Related Data: Date of Last Menstrual Period: 11/11/19 Review of Systems Const: Denies: fever, chills, body aches, change in appetite, change in weight, fatigue or malaise Eyes: Denies: change in vision or blurry vision ENMT: Denies: throat pain, enlarged tonsils or painful swallowing Card: Denies: chest pain, palpitations, irregular heart rhythm, edema, lightheadedness, syncope, pre-syncope or shortness of breath when lying down Resp: Denies: shortness of breath, productive cough, non-productive cough or chest congestion GI: Reports: abdominal pain; Denies: nausea, vomiting, diarrhea, change in bowel habits, change in stool character, blood in stool, white/light colored stool or fatty stool : Denies: flank pain, difficulty urinating, painful urination, urinary frequency or urinary urgency Musc: Denies: neck pain or back pain Skin/Breast: Reports: redness Neuro: Denies: headache, numbness in extremities, weakness in extremities or changes in sensation PFSH ED PFSH: Medical History (Updated 12/02/19 @ 23:26 by ZABRINA Blanchard) Anxiety Bipolar disorder Hypertension Surgical History (Updated 12/02/19 @ 17:43 by Raudel Méndez MD) Status post laparoscopic cholecystectomy Social History Smoking and tobacco status: current every day smoker Alcohol intake: never Lives independently: Yes Household members: family Current occupational status: employed History of recent travel: No Female Reproductive History: Date of last menstrual period: 11/11/19 Physical Exam Const: COMMON NORMALS: no apparent distress, average body habitus, oriented x3, no limitations, healthy appearing, alert and well nourished Resp: COMMON NORMALS: normal respiratory effort and clear to auscultation bilaterally AUSCULTATION: clear to auscultation bilaterally Cardio: COMMON NORMALS: regular rate and regular rhythm RATE: regular rate RHYTHM: regular rhythm GI: OTHER: pt has a 5 inch area of erythema and warmth surrounding her periumbilical lap incision interiorly-she has warmth superiorly but w/o redness; she is quite tender surrounding this area and feels like her abdomen is distended; no wound dehiscence; she has no other tender areas throughout her abdomen; other lap incisions look clean Neuro: COMMON NORMALS: oriented x3 SENSORIUM/ORIENTATION: Yes alert Course Vital Signs: Vital signs: Vital Signs Temperature 98.0 F 12/02/19 21:36 Pulse Rate 86 12/03/19 00:23 Respiratory Rate 20 H 12/03/19 00:23 Blood Pressure 200/120 12/03/19 00:23 Pulse Oximetry 99 12/03/19 00:23 MDM - Abdominal Pain MDM Narrative: Medical decision making narrative: Patient has no evidence of any abscess within her peritoneal cavity per her CT scan. Patient is not tachycardic, febrile, and she has no elevated white count. Spoke with Dr. Ortiz who agrees with antibiotic coverage and plan to follow-up with Dr. Méndez as soon as possible in office for reevaluation. Information placed with case management so they can work on this appointment. Very strict return to ED precautions given regarding worsening pain, redness, or fevers despite antibiotic therapy. Lab Data: Labs: Lab Results 12/02/19 12/02/19 12/02/19 Range/Units 21:45 21:55 21:55 WBC 10.1 H (4.0-10.0) 10^3/ uL RBC 4.90 (4.1-5.3) 10^6/u L Hgb 16.3 H (11.5-15.3) g/dL Hct 49.5 H (37.0-47.0) % MCV 101.0 H (81-99) fL MCH 33.3 (28.0-34.0) pg MCHC 32.9 (30.0-36.0) g/dL RDW 12.3 (12.1-15.1) % Plt Count 249 (130-400) 10^3/c mm MPV 10.7 H (7.4-10.4) fL Neut % (Auto) 75.8 % Lymph % (Auto) 14.2 % [place] % (Auto) 8.5 % Eos % (Auto) 0.9 % Baso % (Auto) 0.2 % Neut # (Auto) 7.6 (1.8-7.7) 10^3/u L Lymph # (Auto) 1.4 (0.8-4.8) 10^3/u L [place] # (Auto) 0.9 (0.2-0.9) 10^3/u L Eos # (Auto) 0.1 (0.0-0.8) 10^3/u L Baso # (Auto) 0.0 (0.0-0.1) 10^3/u L Nucleated RBC % (a uto) 0 % Nucleated RBCs # 0.0 /100WBC Sodium 138 (136-145) mmol/L Potassium 3.1 L (3.5-5.1) mmol/L Chloride 98 (98-107) mmol/L Carbon Dioxide 27 (22-29) mmol/L Anion Gap 16.1 (5-19) BUN 7 (6-20) mg/dL Creatinine 0.6 (0.5-0.9) mg/dL GFR Calculation 110.2 (90-130) mL/min Glucose 91 (65-115) mg/dL Calcium 10.2 (8.5-10.5) mg/dL Magnesium 2.0 (1.7-2.3) mg/dL Total Bilirubin 0.3 (0.15-1.2) mg/dL AST 14 (0-32) U/L ALT 10 (0-33) U/L Alkaline Phosphata se 109 H (35-105) IU/L Total Protein 8.2 (6.6-8.7) g/dL Albumin 4.4 (3.5-5.2) g/dL Globulin 3.8 (1.3-4.6) g/dL Lipase 21 (13-60) U/L Imaging Data ^: CT Abd/Pel: Radiologist's impression: [address] [place] [address] CT Scan Report Signed Patient: Roxanne Knowles Unit #: [id number] : 1980 Age/Sex: 39 / F ADM Date: 12/02/19 Loc: ER Room/Bed: Attending Dr: Ordering Provider/Ordering MD: Romy Najera Date of Service: 12/02/19 Procedure(s): CT abdomen pelvis w con* [id number] Accession Number(s): [id number] Report Number: [id number] PROCEDURE INFORMATION: Exam: CT Abdomen And Pelvis With Contrast Exam date and time: 12/02/2019 10:09 PM Age: 39 years old Clinical indication: Abdominal pain; Generalized; Prior surgery; Surgery date: 3-7 days post-operative; Patient HX: PT states gb removed 11/27/2019, followup appt today w surgeon, since appt PT states her abd has bloated 3x the size; Additional info: Periumbilical post-op infection TECHNIQUE: Imaging protocol: Computed tomography of the abdomen and pelvis with intravenous contrast. Total DLP: 809.96 mGy-cm Radiation optimization: All CT scans at this facility use at least one of these dose optimization techniques: automated exposure control; mA and/or kV adjustment per patient size (includes targeted exams where dose is matched to clinical indication); or iterative reconstruction. Contrast material: OMNIPAQUE 300; Contrast volume: 95 ml; Contrast route: IV; COMPARISON: CT abdomen pelvis w con* [id number] 11/25/2019 8:31 PM FINDINGS: Lungs: Nonspecific bibasilar consolidation is present, consistent with atelectasis, edema, or pneumonia. Heart: There is a small pericardial effusion versus pericardial thickening unchanged since the prior exam. Liver: Unremarkable.No mass. Gallbladder and bile ducts: The patient is status post cholecystectomy. There is mild unchanged intrahepatic biliary duct dilatation. Pancreas: Normal. No ductal dilation. Spleen: Normal. No splenomegaly. Adrenals: Normal. No mass. Kidneys and ureters: There is no evidence of hydronephrosis. Click no right nephrolithiasis there is nonobstructive left nephrolithiasis with a 1 cm midpole calculus. Stomach and bowel: There is a probable duodenal diverticulum immediately adjacent to the gallbladder fossa. On the axial images, the appearance is concerning for a 2.2 x 1.7 cm abscess within air-fluid level image 35. When viewed on the sagittal images however this appears to be a portion of the duodenum best seen on series 601, image 53. There is no ileus or obstruction. No bowel thickening or colitis. Some of the loops of small bowel demonstrate some mild wall thickening and there is fluid in the lumen that may reflect some very mild enteritis. Appendix: A normal appendix is identified. Intraperitoneal space: There is a small amount of fluid in the pelvis. No intraperitoneal abscess. Vasculature: Unremarkable.No abdominal aortic aneurysm. Lymph nodes: There is a 1.2 cm short axis lymph node in the right groin. No left inguinal adenopathy. No adenopathy in the remainder of the abdomen or pelvis. Bladder: Click bladder nonspecific Reproductive: There is a crenulated/partially collapsing left ovarian cyst measuring 2.1 cm in size. Uterus and right ovary are unremarkable. Bones/joints: There is disc space narrowing and endplate degenerative changes at L5-S1. No acute bony abnormality. Soft tissues: There is marked induration of the subcutaneous fat and skin in the region the umbilicus. This is new and concerning for cellulitis. No abscess. CT/CT abdomen pelvis w con* [id number] IMPRESSION: 1. Nonspecific bibasilar consolidation is present, consistent with atelectasis, edema, and/or pneumonia. 2. Duodenal diverticulum is noted adjacent to the cholecystectomy clips. No abscess in the peritoneal cavity. There is a small amount of fluid in the dependent pelvis. This is nonspecific. This could be physiologic in a menstruating female. This could be postoperative fluid collection. A small bile leak cannot be excluded but there is no fluid collection adjacent to the cholecystectomy clips. 3. Mildly prominent loops of small bowel are noted suggesting mild enteritis. 4. Probable periumbilical cellulitis without abscess. Radiation Dose CTDIVOL = (mGy): DLP = 809.96 (mGy-cm) Dictated By: Yahaira Carrera Signed By: Yahaira Carrera Signed Date/Time: 12/02/192254 DD/ 53 Discharge Plan Discharge Patient Disposition: Home, Self-Care Clinical Impression: Abdominal wall cellulitis Condition: Stable Prescriptions: New hydrocodone-acetaminophen 5-325 mg tablet 1 tab PO Q6H PRN (Reason: pain) Qty: 14 RF: 0 Bactrim DS 800-160 mg tablet 1 tab PO BID 7 Days Qty: 14 RF: 0 Keflex 500 mg capsule 500 mg PO Q6H 7 Days Qty: 28 RF: 0 lisinopril-hydrochlorothiazide 20-12.5 mg tablet 1 tab PO DAILY Qty: 30 RF: 0 No Action sertraline [Zoloft] 100 mg tablet 150 mg PO DAILY RF: 0 cephalexin [Keflex] 500 mg capsule 500 mg PO TID 7 Days Qty: 21 RF: 0 hydrocodone-acetaminophen [Ermine] 5-325 mg tablet 1 tab PO Q6H 7 Days Qty: 20 RF: 0 docusate sodium [Colace] 100 mg capsule 100 mg PO BID Qty: 30 RF: 0 Discharge Orders: Discharge Order (Routine); Ordered 12/02/19 Ordered By: Romy Najera Referrals: Atul Wing [Primary Care Provider] - Jennifer Arnold FNP [Family Provider] - Activity Restrictions/Additional Instructions: As discussed you need to see Dr. Méndez this week for evaluation. If at any point you feel like the redness or pain around your umbilical region is worsening you need to return to the emergency department for re-evaluation. Discharge Date/Time: 12/03/19 00:24 Coding Level of Care Code ED Instrument Lens Grinder Apprentice for Chg Fwd Exam Expanded Problem Focused
--- NOTE | 2019-12-02 22:04 | CTR_ITS ---
PROCEDURE INFORMATION: Exam: CT Abdomen And Pelvis With Contrast Exam date and time: 12/02/2019 10:09 PM Age: 39 years old Clinical indication: Abdominal pain; Generalized; Prior surgery; Surgery date: 3-7 days post-operative; Patient HX: PT states gb removed 11/27/2019, followup appt today w surgeon, since appt PT states her abd has bloated 3x the size; Additional info: Periumbilical post-op infection TECHNIQUE: Imaging protocol: Computed tomography of the abdomen and pelvis with intravenous contrast. Total DLP: 809.96 mGy-cm Radiation optimization: All CT scans at this facility use at least one of these dose optimization techniques: automated exposure control; mA and/or kV adjustment per patient size (includes targeted exams where dose is matched to clinical indication); or iterative reconstruction. Contrast material: OMNIPAQUE 300; Contrast volume: 95 ml; Contrast route: IV; COMPARISON: CT abdomen pelvis w con* [id number] 11/25/2019 8:31 PM FINDINGS: Lungs: Nonspecific bibasilar consolidation is present, consistent with atelectasis, edema, or pneumonia. Heart: There is a small pericardial effusion versus pericardial thickening unchanged since the prior exam. Liver: Unremarkable.No mass. Gallbladder and bile ducts: The patient is status post cholecystectomy. There is mild unchanged intrahepatic biliary duct dilatation. Pancreas: Normal. No ductal dilation. Spleen: Normal. No splenomegaly. Adrenals: Normal. No mass. Kidneys and ureters: There is no evidence of hydronephrosis. Click no right nephrolithiasis there is nonobstructive left nephrolithiasis with a 1 cm midpole calculus. Stomach and bowel: There is a probable duodenal diverticulum immediately adjacent to the gallbladder fossa. On the axial images, the appearance is concerning for a 2.2 x 1.7 cm abscess within air-fluid level image 35. When viewed on the sagittal images however this appears to be a portion of the duodenum best seen on series 601, image 53. There is no ileus or obstruction. No bowel thickening or colitis. Some of the loops of small bowel demonstrate some mild wall thickening and there is fluid in the lumen that may reflect some very mild enteritis. Appendix: A normal appendix is identified. Intraperitoneal space: There is a small amount of fluid in the pelvis. No intraperitoneal abscess. Vasculature: Unremarkable.No abdominal aortic aneurysm. Lymph nodes: There is a 1.2 cm short axis lymph node in the right groin. No left inguinal adenopathy. No adenopathy in the remainder of the abdomen or pelvis. Bladder: Click bladder nonspecific Reproductive: There is a crenulated/partially collapsing left ovarian cyst measuring 2.1 cm in size. Uterus and right ovary are unremarkable. Bones/joints: There is disc space narrowing and endplate degenerative changes at L5-S1. No acute bony abnormality. Soft tissues: There is marked induration of the subcutaneous fat and skin in the region the umbilicus. This is new and concerning for cellulitis. No abscess. CT/CT abdomen pelvis w con* [id number] IMPRESSION: 1. Nonspecific bibasilar consolidation is present, consistent with atelectasis, edema, and/or pneumonia. 2. Duodenal diverticulum is noted adjacent to the cholecystectomy clips. No abscess in the peritoneal cavity. There is a small amount of fluid in the dependent pelvis. This is nonspecific. This could be physiologic in a menstruating female. This could be postoperative fluid collection. A small bile leak cannot be excluded but there is no fluid collection adjacent to the cholecystectomy clips. 3. Mildly prominent loops of small bowel are noted suggesting mild enteritis. 4. Probable periumbilical cellulitis without abscess. Radiation Dose CTDIVOL = (mGy): DLP = 809.96 (mGy-cm)
[2019-12-02 22:06] LABS: Basophils % 0.2 %; Eosinophils # 0.1 10^3/uL (0.0-0.8); Eosinophils % 0.9 %; Hematocrit 49.5 % (37.0-47.0); Hemoglobin 16.3 g/dL (11.5-15.3); Lymphocytes # 1.4 10^3/uL (0.8-4.8); Lymphocytes % 14.2 %; Mean Corpuscular HGB Conc 32.9 g/dL (30.0-36.0); Mean Corpuscular Hemoglobin 33.3 pg (28.0-34.0); Mean Platelet Volume 10.7 fL (7.4-10.4); Monocytes # 0.9 10^3/uL (0.2-0.9); Monocytes % 8.5 %; Neutrophils # 7.6 10^3/uL (1.8-7.7); Neutrophils % 75.8 %; Nucleated Red Blood Cells % 0 %; Platelet Count 249 10^3/cmm (130-400); Red Cell Distribution Width 12.3 % (12.1-15.1); White Blood Count 10.1 10^3/uL (4.0-10.0)
[2019-12-02 22:09] VITALS: RESP 18; O2SAT 99
[2019-12-02] MEDS: ondansetron 2 mg/ML SDV 2 mL 4 MG IVP (22:09)
[2019-12-02] MEDS: morphine 4 mg/mL SDV 1 mL IVP (22:09)
[2019-12-02 22:19] LABS: Alanine Aminotransferase 10 U/L (0-33); Albumin Level 4.4 g/dL (3.5-5.2); Alkaline Phosphatase 109 IU/L (35-105); Anion Gap 16.1 (5-19); Aspartate Amino Transferase 14 U/L (0-32); Blood Urea Nitrogen 7 mg/dL (6-20); Calcium 10.2 mg/dL (8.5-10.5); Carbon Dioxide 27 mmol/L (22-29); Chloride 98 mmol/L (98-107); Globulin 3.8 g/dL (1.3-4.6); Glomerular Filtration Rate 110.2 mL/min (90-130); Glucose 91 mg/dL (65-115); Lipase 21 U/L (13-60); Potassium 3.1 mmol/L (3.5-5.1); Sodium 138 mmol/L (136-145); Total Bilirubin 0.3 mg/dL (0.15-1.2); Total Protein 8.2 g/dL (6.6-8.7)
[2019-12-02] MEDS: iohexol 300 mg/mL 100 mL Btl IV (22:23)
[2019-12-02] MEDS: vancomycin 1,000 MG in sodium chloride 0.9% 250 ML 250 MG IV (23:10)
[2019-12-02 23:13] VITALS: BP 184/102; PULSE 78; RESP 18; O2SAT 99
[2019-12-02] MEDS: hydroCHLOROthiazide 25 mg Tablet 12.5 MG PO (23:58)
[2019-12-02] MEDS: lisinopril 20 mg Tablet PO (23:59)
[2019-12-03] MEDS: HYDROcodone-acetaminophen 5-325 mg Tablet 2 TAB PO
[2019-12-03 00:09] VITALS: BP 192/109; PULSE 90; RESP 18; O2SAT 98
[2019-12-03 00:23] VITALS: BP 200/120; PULSE 86; RESP 20; O2SAT 99
--- NOTE | 2019-12-05 13:24 | DCPLANNER ---
catering service manager had message to schedule a follow up appointment for patient with [facility]. Patient has a follow up appointment scheduled for 12.05.19 at 1:00, patient did attend the appointment.
--- NOTE | 2019-12-19 09:24 | DCPLANNER ---
Patient did attend appointment scheduled for 12.05.19 with [facility].
== END 2019-12-03 00:24 | disposition home or self-care (01) ==
PROVIDERS: Emergency Provider Physician Assistant; Family Provider Nurse Practitioner Family; PCP Family Medicine
DX: L03.311 Cellulitis of abdominal wall (principal); I10 Essential (primary) hypertension; F17.200 Nicotine dependence, unspecified, uncomplicated; Z90.49 Acquired absence of other specified parts of digestive tract
CPT/HCPCS: 36415; 74177; 80053; 83690; 83735; 85025; 87040; 96365; 96366; 96375; 99283; 99284; J2270; J2405; J3370; J7050; Q9967

== ENCOUNTER → 2020-05-15 10:45 | Outpatient (BNVA) | payer SELFPAY | PROVIDERS: Family Provider Nurse Practitioner Family; PCP Family Medicine; Visit Provider Nurse Practitioner Family | DX: R19.7 Diarrhea, unspecified (principal); R19.8 Other specified symptoms and signs involving the digestive system and abdomen; R21 Rash and other nonspecific skin eruption | CPT/HCPCS: 80048; 85025 ==

== ENCOUNTER → 2020-05-17 16:21 | Outpatient (BNVA) | payer SELFPAY | PROVIDERS: Family Provider Nurse Practitioner Family; PCP Family Medicine; Visit Provider Nurse Practitioner Family | DX: R19.8 Other specified symptoms and signs involving the digestive system and abdomen (principal); R19.7 Diarrhea, unspecified; R21 Rash and other nonspecific skin eruption | CPT/HCPCS: 87205; 87425; 87506 ==

== ENCOUNTER → 2020-06-24 16:50 | Outpatient (BNVA) | payer SELFPAY | PROVIDERS: Family Provider Nurse Practitioner Family; PCP Family Medicine; Visit Provider Emergency Medicine | DX: Z32.00 Encounter for pregnancy test, result unknown (principal) | CPT/HCPCS: 81025 ==

== ENCOUNTER 2020-08-24 12:42 | Emergency (ER) | payer SELFPAY ==
[2020-08-24 13:06] VITALS: BP 174/125; PULSE 93; RESP 14; TEMP 36.9; O2SAT 98; BMI 28.3
--- NOTE | 2020-08-24 13:46 | W.ED.ABDPA2 ---
HPI - Abdominal Pain General: Chief Complaint: Abdominal Pain Stated Complaint: lower abd pain Time Seen by Provider: 08/24/20 13:27 Source: patient Mode of arrival: ambulatory Limitations: no limitations History of Present Illness: HPI narrative: Last menstrual period was in April 2020 and she said a lot has been going on her life she had not taken noticed. She had done a test which was slightly positive and has taken to others since then including last night and they were both negative. She noticed her lower abdomen is getting bigger and does not know why. She developed right lower quadrant pain yesterday and has gotten a little worse today so she is here to see what is going on. MD elicited complaint: abdominal pain Onset (ago): day(s) (1) Pain Consistency: constant Location: RLQ Severity: moderate Quality: cramping Radiation: none Migration to: no migration Exacerbating factors: nothing Relieving factors: nothing Associated Symptoms: Denies anorexia, belching, bloating, change in bowel habits, change in stool character, chills, coffee ground emesis, constipation, GI cramping, diarrhea, dyspepsia, dysuria, excessive flatus, fever(s), heartburn, hematochezia, hematuria, hematemesis, fecal incontinence, loose stools, melena, nausea, poor appetite, syncope and vomiting Related Data: Date of Last Menstrual Period: 04/05/20 Review of Systems General: Reports: 10 or more systems reviewed and unremarkable except in HPI and below Const: Denies: fever(s) or chills Eyes: Denies: change in vision or blurry vision ENMT: Denies: throat pain, enlarged tonsils, odynophagia, hoarseness, mouth pain or swelling of lips/tongue Card: Denies: syncope Resp: Denies: dyspnea, productive cough or non-productive cough GI: Denies: nausea, vomiting, hematemesis, coffee ground emesis, heartburn, diarrhea, constipation, bloating, GI cramping, belching, excessive flatus, fecal incontinence, change in bowel habits, change in stool character, hematochezia or melena : Denies: dysuria or hematuria Musc: Denies: neck pain, back pain or extremity swelling Skin/Breast: Denies: rash, pruritus or erythema Neuro: Denies: headache(s), numbness in extremities or weakness in extremities Endo: Denies: polyuria, polydipsia or tired all the time PFSH ED PFSH: Medical History Anxiety Bipolar disorder Bipolar II disorder Hypertension Other stimulant dependence, uncomplicated Peripheral edema Smoking Surgical History (Reviewed 08/24/20 @ 13:49 by Melissa Greenberg MD, [facility] [place] Status post laparoscopic cholecystectomy Family History (Reviewed 08/24/20 @ 13:49 by Melissa Greenberg MD, [facility] [place]) Denies family history of Anesthesia complication Bleeding disorder Social History (Reviewed 08/24/20 @ 13:49 by Melissa Greenberg MD, [facility] [place]) Smoking and tobacco status: current every day smoker Alcohol intake: never Lives independently: Yes Household members: family Current occupational status: employed History of recent travel: No Female Reproductive History: Date of last menstrual period: 04/05/20 Physical Exam Const: COMMON NORMALS: no acute distress, average body habitus, patient oriented x3, no limitations, healthy appearing, alert and well nourished HENMT: COMMON NORMALS: normocephalic, atraumatic and moist oral mucous membranes HEAD & SCALP: normocephalic and atraumatic Eye: COMMON NORMALS: Equal, round and reactive pupils present, EOMs intact bilaterally, conjunctivae normal and no scleral icterus CONJUNCTIVA: Yes conjunctivae normal PUPIL: Yes Equal, round and reactive pupils present Neck/C-Spine: COMMON NORMALS: no meningeal signs and no JVD Resp: COMMON NORMALS: normal respiratory effort, No retractions, No use of accessory muscles, clear to auscultation bilaterally and percussion normal AUSCULTATION: clear to auscultation bilaterally PERCUSSION: percussion normal Cardio: COMMON NORMALS: no JVD, regular rate, regular rhythm, S1 normal heart sound present, S2 normal heart sound present, No gallops present (Cardio), No clicks present (Cardio), No murmurs present (Cardio), No rub (Cardio) and Peripheral pulses 2+ throughout RATE: regular rate RHYTHM: regular rhythm HEART SOUNDS: S1 normal heart sound present and S2 normal heart sound present PERIPHERAL PULSES: Peripheral pulses 2+ throughout GI: COMMON NORMALS: Normal to inspection, nondistended, normoactive bowel sounds present, Soft to palpation, No hepatosplenomegaly present, no masses and no bruits PALPATION: Yes Soft to palpation, Yes Tenderness to palpation present (GI) (mild, no rebound or guarding) Details: RLQ, No Guarding due to palpation present (GI), No Rigid due to palpation, Yes No hepatosplenomegaly present and No Rebound tenderness present : COMMON NORMALS: Yes no CVA tenderness BLADDER/KIDNEY EXAM: Yes no CVA tenderness Back/Pelvis: COMMON NORMALS: no CVA tenderness Neuro: COMMON NORMALS: patient oriented x3 SENSORIUM/ORIENTATION: Yes alert MENINGEAL SIGNS: Yes no meningeal signs Skin: COMMON NORMALS: no rashes or lesions noted, no wounds, turgor normal, no jaundice, no petechiae and no mottling GENERAL SKIN EXAM: no rashes or lesions noted and turgor normal Course Reevaluation(s): Reevaluation #1: Once discussed with patient about her lab results and she had apparently absconded. Time: 15:25 Vital Signs: Vital signs: Vital Signs Temperature 98.4 F 08/24/20 13:06 Pulse Rate 93 08/24/20 13:06 Respiratory Rate 14 08/24/20 13:06 Blood Pressure 174/125 08/24/20 13:06 Pulse Oximetry 98 08/24/20 13:06 MDM - Abdominal Pain Lab Data: Labs: Lab Results 08/24/20 08/24/20 Range/Units 14:09 14:09 Urine Color Yellow (Yellow) Urine Appearance Hazy A (CLEAR) Urine pH 5 (5-7) Ur Specific Gravit y 1.025 (1.005-1.030) Urine Protein Neg (Negative) Urine Glucose (UA) Norm (Normal) Urine Ketones Negative (Negative) Urine Blood 2+ H (Negative) Urine Nitrate Negative (Negative) Urine Bilirubin Neg (Negative) Urine Urobilinogen Norm (Negative) mg/dL Ur Leukocyte Elise ase Negative (Negative) Urine RBC 5-10 H (0-2) /hpf Urine WBC None (0-5) /hpf Ur Squamous Epith Cells 0-4 H (0-5) /hpf Calcium Oxalate Cr ystal >100 H /hpf Amorphous Sediment Not Reportable Urine Bacteria Trace (NONE) /hpf Urine Opiates Scre en Negative (Negative) ng/mL Ur Barbiturates Sc reen Negative (Negative) ng/mL Ur Phencyclidine S crn Negative (Negative) ng/mL Ur Amphetamines Sc reen Positive H (Negative) ng/mL U Benzodiazepines Scrn Negative (Negative) ng/mL Urine Cocaine Scre en Negative (Negative) ng/mL U Marijuana (THC) Screen Negative (Negative) ng/mL Discharge Plan Discharge Patient Disposition: Left Against Medical Advice Clinical Impression: Acute right lower quadrant pain, Methamphetamine abuse Hematuria Qualifiers: Hematuria type: other microscopic Qualified Code(s): R31.29 - Other microscopic hematuria Condition: Stable Prescriptions: No Action lisinopril-hydrochlorothiazide 20-25 mg tablet 1 tab PO DAILY 30 Days Qty: 30 RF: 5 sertraline [Zoloft] 100 mg tablet 150 mg PO DAILY Qty: 45 RF: 1 olanzapine [Zyprexa] 5 mg tablet 5 mg PO DAILY Qty: 30 RF: 1 metronidazole 500 mg tablet 500 mg PO Q8H PRN (Reason: Stomach Upset) RF: 0 Referrals: Atul Wing [Primary Care Provider] - Patient Instructions: Abdominal Pain (ED) Coding Level of Care Code ED Library Customer Service Clerk for Chg Fwd Exam Comprehensive
[2020-08-24 14:35] LABS: Amphetamines Screen Urine Positive (Negative); Barbiturates Screen Urine Negative (Negative); Benzodiazepines Screen Urine Negative (Negative); Cocaine Screen Urine Negative (Negative); Opiate Screen Urine Negative (Negative); PCP Screen Urine Negative (Negative); THC Screen Urine Negative (Negative)
[2020-08-24 14:41] LABS: Add Urine Microscopic? YES; Bilirubin Urine Neg (Negative); Blood Urine 2+ (Negative); Glucose Urine UA Norm (Normal); Ketones Urine Negative (Negative); Leukocyte Esterase Urine Negative (Negative); Nitrate Urine Negative (Negative); Protein Urine Neg (Negative); Specific Gravity, Urine 1.025 (1.005-1.030); Urine Appearance Hazy (CLEAR); Urine Color Yellow (Yellow); Urobilinogen Urine Norm (Negative); pH Urine 5 (5-7)
[2020-08-24 14:46] LABS: Add Urine Culture? No; Bacteria Urine TRACE /hpf; Calcium Oxalate Crystals Urine >100 /hpf; Squamous Epithelial Cell Urine 0-4 /hpf (0-5)
== END 2020-08-24 15:38 | disposition left against medical advice (07) ==
PROVIDERS: Family Medicine; Emergency Provider Family Medicine; PCP Family Medicine
DX: R10.31 Right lower quadrant pain (principal); F15.10 Other stimulant abuse, uncomplicated; Z53.29 Procedure and treatment not carried out because of patient's decision for other reasons; N94.89 Other specified conditions associated with female genital organs and menstrual cycle; R31.29 Other microscopic hematuria; F17.200 Nicotine dependence, unspecified, uncomplicated; F31.81 Bipolar II disorder; F41.9 Anxiety disorder, unspecified
CPT/HCPCS: 12345; 80306; 81001; 99281

== ENCOUNTER 2020-11-03 01:11 | Inpatient (IN) | payer SELFPAY ==
[2020-11-03] VITALS (7 sets, daily range): BP systolic 97–168; BP diastolic 60–109; PULSE 75–98; RESP 16–19; TEMP 36.6–37; O2SAT 95–99; BMI 28.3
--- NOTE | 2020-11-03 02:44 | P.HP_ITS ---
Providers/Chief Complaint Primary Care Provider: Atul Wing Chief Complaint: AMS History of Present Illness Roxanne Knowles is a 40 year old female who has history of bipolar disorder presented today after she was found wandering in the streets. Patient is not able to have recall of events however she is endorsing using IV methamphetamine, she is denying chest pain, shortness of breath nausea vomiting headache or abdominal pain. As per the report from the ER, patient was found running in the traffic tonight, police was called who brought her to the ER. On arrival she had psychotic features, she was hypertensive and tachycardic, afebrile no signs of meningitis. Drug screen was positive for methamphetamine and marijuana, polycythemia noted, urinalysis shows pyuria trichomonas, hematuria. Psychiatrist has been notified and consulted has requested medical team to admit her overnight because of hypertensive episode and tachycardia. Review of Systems Const: Reports: body aches and fatigue; Denies: fever(s) Eyes: Denies: change in vision ENMT: Denies: throat pain Card: Denies: chest pain Resp: Reports: dyspnea GI: Denies: abdominal pain : Denies: flank pain Musc: Denies: neck pain Skin/Breast: Reports: lesions; Denies: rash Neuro: Reports: confusion Psych: Reports: anxiety Endo: Denies: polyuria Bo/Lymph: Denies: easy bruising All/Imm: Denies: urticaria Medications/Allergies Home Medications Medication Instructions Recorded Confirmed Last Taken Type lisinopril 20 1 tab PO DAILY 30 Days #30 tab 06/04/20 08/24/20 Unknown Rx mg-hydrochlorothiazide 25 mg tablet olanzapine 5 mg tablet 5 mg PO DAILY #30 tab 06/26/20 08/24/20 Unknown Rx sertraline 100 mg tablet 150 mg PO DAILY #45 tab 06/26/20 08/24/20 Unknown Rx metronidazole 500 mg PO Q8H PRN 08/24/20 08/24/20 Unknown History Allergies Allergy/AdvReac Type Severity Reaction Status Date / Time No Known Allergies Allergy Verified 06/24/20 16:47 PFSH Acute PFSH: Medical History Anxiety Bipolar disorder Bipolar II disorder Hypertension Other stimulant dependence, uncomplicated Peripheral edema Smoking Surgical History Status post laparoscopic cholecystectomy Family History Denies family history of Anesthesia complication Bleeding disorder Social History (Updated 11/03/20 @ 03:14 by Loki Purdy MD) Smoking and tobacco status: current every day smoker Alcohol intake: never Substance/Drug Use: current Substance/Drug use type: Marijuana and Methamphetamine Lives independently: Yes Household members: family Current occupational status: employed History of recent travel: No Female Reproductive History: Date of last menstrual period: 04/05/20 Physical Exam Narrative: EXAM NARRATIVE: Young female Appears stated age, Flushed facial skin Multiple needlestick track matos on her extremities She is able to answer simple questions No nystagmus noted, verbally redirectable no signs of meningitis S1, S2 sinus tachycardia Abdomen soft nontender bowel sound present Multiple skin tattoos Lower extremity no edema gangrene ulcer Patient is not able to recall today's event No joint swelling Skin flushing noted around hands and face no active cellulitis Mild conjunctival hyperemia A&P Assessment and plan (1) Psychosis: Status: Acute (2) Polysubstance abuse: Status: Acute Additional A&P Information Psychosis secondary to polysubstance abuse Drug screen positive for methamphetamine and marijuana Facial flushing noticed this most likely secondary to methamphetamine effect Polycythemia noted as well clinically looks dehydrated We will start on normal saline maintenance fluid rate We will keep her on CIWA protocol Psychology consult placed Hypertension and tachycardia Secondary to methamphetamine abuse I would use labetalol 20 mg p.o. x1 only Continue her home regimen of lisinopril and hydrochlorothiazide Trichomonas vaginalis Will continue her on metronidazole We will check for hepatitis and HIV panel Full code Cardiac diet DVT prophylaxis not needed as she is low risk Attestations Medical Necessity Statement*: Anticipating stay in the hospital course more than 2 midnights currently need closer monitoring for psychosis due to polysubstance abuse Time Spent in Patient Care: (>than 50% of time spent in counselling and/or direct pt care on unit) . 50mins Coding Level of Care Code Acute Reel System Operator for [facility] Diagnoses Psychosis F29 Polysubstance abuse F19.10
[2020-11-03] MEDS: acetaminophen 325 mg Tablet PO (04:45)
[2020-11-03] MEDS: sodium chloride 0.9% 1,000 ML 75 ML IV (04:46)
[2020-11-03] MEDS: labetalol 200 mg Tablet PO (04:46)
[2020-11-03] MEDS: metroNIDAZOLE 500 MG Tablet PO ×3 (04:46→20:30)
[2020-11-03 07:38] LABS: Hepatitis A Antibody IgM Non-Reactive (Nonreactive); Hepatitis B Core AB, Total Non-Reactive (Nonreactive); Hepatitis B Surface AB 729.4 (0-8.5); Hepatitis B Surface Antigen Non-Reactive (Nonreactive); Hepatitis C Virus Antibody Reactive (Nonreactive)
[2020-11-03] MEDS: multivitamin therapeutic Tablet 1 TAB PO (08:59)
[2020-11-03] MEDS: hydroCHLOROthiazide 25 mg Tablet PO (08:59)
[2020-11-03] MEDS: lisinopril 20 mg Tablet PO (08:59)
[2020-11-03] MEDS: thiamine 100 mg Tablet PO (08:59)
[2020-11-03] MEDS: folic acid 1 mg Tablet PO (08:59)
--- NOTE | 2020-11-03 09:45 | PC.CHAP ---
Pastoral Care Encounter/Spiritual Assessment Type of Contact [] Declined power generation turbine room operator visit [] Patient/Family/Request visit [] Outpatient visit [] Follow-up visit [] Physician referral [] Code/Alert [x] Routine visit [] Staff referral [] Actively dying [] Patient sleeping [] Family support [] [] Out of room [] Palliative care [] [] Receiving care in room [] Pre-surgical visit [] Trauma [] Long length of stay [] ICU visit [] Other: Relational/Emotional Strength [] Patient feels connected with others/family/visitors/staff [] Distress [] Loneliness/isolation [] Abandonment Spirituality of Patient [x] Person of Jasmina [] Attends Hinduism of their Jasmina [] Believes in Prayer [] Reads Bible or Orthodox materials [] There are Spiritual issues to be addressed Flying Instructor Interventions [x] Prayer [x] Active listening [] Non-anxious presence [] Spiritual/emotional support [] Crisis/trauma care [] Spiritual counseling [] Bereavement support [] Provided bereavement packet [] Provided Bible/devotional materials [] Provided toy/stuffed animal, coloring book to patient or family member [] Provided Communion [] Anointing/Providence [] Salvation [x] Completed spiritual assessment [] Other: Impact on Illness or Injury [] Angry [] Fearful [] Anxious [] Often cries [] Exhaustion [] Unable to work [] Unable to attend advent [] Unable to walk/stand [] Unable to read [] Unable to drive [] Unable to eat/drink [] Unable to sleep [] Unable to be with family [] Patient intubated [] Other: Summary patient not feeling well at all Time spent with patient 10 min
--- NOTE | 2020-11-03 13:01 | P.CONIM_ITS ---
Providers/Reason for Consult Consulting Physican/Specialty*: Jone Bruce DO Reason for Consult*: Substance-induced psychotic disorder, depression, history of bipolar disorder Attending Physician: Edouard Hill Primary Care Provider: Atul Wing Psych Consult HPI History of Present Illness Roxanne Knowles is a 40 year old female history of bipolar disorder, polysubstance abuse, presented to the emergency department after being found running in traffic, positive for amphetamine, cannabis. Patient had elevated blood pressure at the time of admission and required medical stabilization. She has subsequently had normalization of her blood pressure. Psychiatry consulted for evaluation and treatment recommendations. Patient is a difficult historian secondary to lack of cooperation initially with interview, she subsequently provides brief responses to interviewer but remains somewhat evasive with regards to questions about suicidality and self-harm. Patient reports ongoing depressive symptoms with low mood, decreased energy and interest, does not provide any temporal relationship of her mood symptoms with substance use but states that she has had multiple stressors to include likely losing her job as well as other financial and family stressors. Per above, does not provide response to whether or not she actively has current suicidal ideation. She does report past suicide attempt by overdose in the past year and a half, reports past self-harm behavior. Per chart review, past [facility] appointments indicate that patient has longstanding history of irritability, interpersonal difficulties, mood and affect lability and suspicious for borderline personality disorder in addition to being treated for her mood disorder. Patient has history of polysubstance abuse but does not provide any information about recent use and does not affirm recent use of methamphetamine or cannabis prior to this admission. She only states that she does not recall the events leading to her hospitalization other than remembering that she saw headlights sometime last night. She reports hearing some auditory hallucinations since this hospitalization, mostly reports muffling sounds, denies hearing any discrete voices, denies any visual hallucinations, reports some delusions of people making fun of her during this hospitalization. 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 Patient states that she is agreeable to transfer to inpatient psychiatry and is agreeable to medication stabilization and treatment. Review of Systems General: Reports: ROS unobtainable due to medical condition Meds Current Medications: Current Medications Generic Name Dose Route Start Last Admin Trade Name Hossein PRN Reason Stop Dose Admin Acetaminophen 325 - 650 mg 11/03/20 04:00 11/03/20 04:45 Acetaminophen 32 5 Mg Tablet PO 650 mg Q4H PRN Administration MILD PAIN OR INCR EASE TEMP Folic Acid 1 mg 11/03/20 09:00 11/03/20 08:59 Folic Acid 1 Mg Tablet PO 1 mg DAILY ELEONORA Administration Hydrochlorothiazid e 25 mg 11/03/20 09:00 11/03/20 08:59 Hydrochlorothiaz julita 25 Mg Tablet PO 25 mg DAILY ELEONORA Administration Sodium Chloride 1,000 mls @ 75 ml s/hr 11/03/20 04:00 11/03/20 04:46 Sodium Chloride 0.9% IV 75 mls/hr .[id number] ELEONORA Administration Lisinopril 20 mg 11/03/20 09:00 11/03/20 08:59 Lisinopril 20 Mg Tablet PO 20 mg DAILY ELEONORA Administration Metronidazole 500 mg 11/03/20 04:00 11/03/20 04:46 Metronidazole 50 0 Mg Tablet PO 500 mg Q8H ELEONORA Administration Multivitamins Ther apeutic 1 tab 11/03/20 09:00 11/03/20 08:59 Multivitamin The rapeutic Tablet PO 1 tab DAILY ELEONORA Administration Thiamine Mononitra te 100 mg 11/03/20 09:00 11/03/20 08:59 Thiamine 100 Mg Tablet PO 100 mg DAILY ELEONORA Administration PFSH NPU PFSH: Medical History Anxiety Bipolar disorder Bipolar II disorder Hypertension Other stimulant dependence, uncomplicated Peripheral edema Smoking Surgical History Status post laparoscopic cholecystectomy Family History Denies family history of Anesthesia complication Bleeding disorder Social History Smoking and tobacco status: current every day smoker Alcohol intake: never Substance/Drug Use: current Substance/Drug use type: Marijuana and Methamphetamine Lives independently: Yes Household members: family Current occupational status: employed History of recent travel: No Other Psychiatric History: Other Psychiatric History: Per chart review, patient followed at [facility] for bipolar 2 disorder, patient does not provide any additional details other than she started mental health treatment sometime in her early 20s but not consistently Reports previous psychiatric hospitalization within the past 18 months but does not recall any other details Reports past suicide attempt per above, also reports past episodes of self-harm behavior in the past Mental Status Exam MSE Comments: Appears stated age, irritable, poor eye contact, poor rapport, wearing hospital gown with tattoos on exposed areas of arms Psychomotor activity is occasionally restless, no agitation Speech is sparse but occasionally normal rate and volume, spontaneous, fair articulation, not pressured Horrible, congruent affect, irritable, angry, somewhat labile Alert and oriented to person, place, time but not situation Memory and concentration appear to be fair at best per interview, patient not providing a lot of information Intellectual functioning appears to be average at best based on vocabulary, interview Thought process with frequent delays, linear but brief, no flight of ideas, does not appear to be attending to any internal stimuli, does not answer questions with regards to suicidality or homicidality Insight and judgment is somewhat limited at this time based on patient's lack of participation with interview Vitals/I&O/Wt Last Vital Signs Temp 97.9 F 11/03/20 11:28 Pulse 75 11/03/20 11:28 Resp 16 11/03/20 11:28 BP 110/71 11/03/20 11:28 Pulse Ox 96 11/03/20 11:28 11/02/20 11/03/20 11/03/20 22:59 06:59 14:59 Intake Total 480 / 480 Balance 480 / 480 Weight last 48 hrs Weight 68.039 kg A&P Assessment and plan (1) Psychosis: Status: Acute (2) Polysubstance abuse: Status: Acute (3) Bipolar II disorder: Status: Acute (4) Methamphetamine abuse: Status: Acute (5) Cannabis abuse: Status: Acute Additional A&P Information Patient with history of bipolar 2 disorder, poor historian, poor rapport, irritable and angry, history of polysubstance abuse presenting with altered mental status after recent substance use but also reporting active depressive symptoms and currently evasive with regards to answering questions about suicidal ideation and self-harm. Patient is agreeable to inpatient psychiatric treatment for medication stabilization, observation. RECOMMENDATIONS: Inpatient psychiatric hospitalization is appropriate at this time for medication stabilization and observation given lack of clarity with regards to safety to self and others. CONTINUE current medication Above recommendations have been communicated to hospitalist by phone Attestations NPU Medical Necessity Statement*: Patient requires psychiatric hospitalization for medication stabilization as well as observation given recent self-destructive behavior and lack of clarity with regards to current safety. Time Spent in Patient Care: Greater than 35 minutes (>than 50% of time spent in counselling and/or direct pt care on unit) . Coding Level of Care Code Acute Household Assistant for [facility] Fwd Diagnoses Psychosis F29 Polysubstance abuse F19.10 Bipolar II disorder F31.81 Methamphetamine abuse F15.10 Cannabis abuse F12.10
--- NOTE | 2020-11-03 14:01 | P.DS_ITS ---
Discharge Providers Date of Admission: 11/03/20 02:35 Date of Discharge: November 03, 2020 Attending Provider at Admission: Loki Purdy MD Attending Provider at Discharge: Edouard Hill Primary Care Provider: Atul Wing Diagnoses at Discharge Discharge Diagnosis (1) Psychosis: Status: Acute (2) Polysubstance abuse: Status: Acute (3) Bipolar II disorder: Status: Acute (4) Methamphetamine abuse: Status: Acute (5) Cannabis abuse: Status: Acute Reason for Visit Reason for Visit: AMS Discharge Data Data Completed and Pending: Pending at discharge Category Date Time Status HIV 1&2 Antigen & Antibody Routine Lab 11/03/20 04:30 Ordered Labs from last 24 hours 11/03/20 06:25 Hepatitis A IgM Ab Non-reactive Hep Bs Antigen Non-reactive Hep Bs Antibody 729.4 H Hep B Core Total A b Non-reactive Hepatitis C Antibo dy Reactive H Vitals: Last Vital Signs Temp 97.9 F 11/03/20 11:28 Pulse 75 11/03/20 11:28 Resp 16 11/03/20 11:28 BP 110/71 11/03/20 11:28 Pulse Ox 96 11/03/20 11:28 Discharge Plan Discharge Condition: Stable Prescriptions: No Action lisinopril-hydrochlorothiazide 20-25 mg tablet 1 tab PO DAILY 30 Days Qty: 30 RF: 5 sertraline [Zoloft] 100 mg tablet 150 mg PO DAILY Qty: 45 RF: 1 olanzapine [Zyprexa] 5 mg tablet 5 mg PO DAILY Qty: 30 RF: 1 Coding Level of Care Code Acute Advanced Solutions Architect for [facility] Fwd Diagnoses Psychosis F29 Polysubstance abuse F19.10 Bipolar II disorder F31.81 Methamphetamine abuse F15.10 Cannabis abuse F12.10
[2020-11-03 15:17] LABS: HIV 1 & 2 Antibody Non-Reactive (Non-Reactiv); HIV 1 & 2 Antigen Non-Reactive (Non-Reactiv)
--- NOTE | 2020-11-03 18:44 | PM.PN ---
Subjective Subjective: Interval history: Patient agitation and aggressive with staff Medications: Reviewed: Yes Vitals/I&O/Wt Last Vital Signs Temp 98.2 F 11/03/20 15:20 Pulse 76 11/03/20 15:20 Resp 17 11/03/20 15:20 BP 97/60 11/03/20 15:20 Pulse Ox 96 11/03/20 15:20 11/03/20 11/03/20 11/03/20 06:59 14:59 22:59 Intake Total 480 / 480 Balance 480 / 480 Weight last 48 hrs Weight 68.039 kg Weight 68.039 kg Physical Exam Narrative: EXAM NARRATIVE: Young female Appears stated age, Multiple needlestick track matos on her extremities S1, S2, NSR Abdomen soft nontender bowel sound present Multiple skin tattoos Lower extremity no edema gangrene ulcer Psych: anxious A&P Assessment and plan (1) Psychosis: Status: Acute (2) Polysubstance abuse: Status: Acute (3) Bipolar II disorder: Status: Acute (4) Methamphetamine abuse: Status: Acute (5) Cannabis abuse: Status: Acute Additional A&P Information Psychosis secondary to polysubstance abuse - Psych consult noted - Bedsite sitter Hypertension and tachycardia - Secondary to methamphetamine abuse - Improved - D/C IVF - Continue home hctz/priyanka Trichomonas vaginalis - Continue flagyl - total 7 days Disposition - Medically stable for transfer to inpatient psych Attestations Medical Necessity Statement*: Will require furhter hospitalization for management of psychiatric issues. transfered to NPU Time Spent in Patient Care: Greater than 35 minutes Coding Level of Care Code Acute Antique Clock Repairer for Rosalia Holguin Diagnoses Psychosis F29 Polysubstance abuse F19.10 Bipolar II disorder F31.81 Methamphetamine abuse F15.10 Cannabis abuse F12.10
[2020-11-03] MEDS: OLANZapine 5 mg ODT PO (21:20)
--- NOTE | 2020-11-03 21:42 | PC.NURSE ---
PM ASSESSMENT PT IS ANXIOUS THIS EVENING, SHE REQUESTED ZYPREXA RUBY, STATED THAT VISTERIL DOES NOT WORK FOR HER. PT CONFIRMS AH/VH IN TIMES OF HIGH STRESS. PT CONFIRMS DRUG USE HISTORY, SPOKE ABOUT HER PTSD, SHE IS CONCERNED THAT SHE WILL NOT BE ABLE TO PAY FOR MEDICATIONS WHEN SHE LEAVES THE UNIT AND THIS STAY WILL BE FOR NOTHING. pT ADVISED OF PROGRAMS THAT CAN HELP, HEADER DOCK MAY NEED TO SPEAK WITH HER TO FACILITATE MEDICATION COMPLIANCE. PT HEART/LUNG SOUNDS ARE WNL, V/S ARE WNL, PT IS NOT EXPERIENCING DELUSIONS AT THIS TIME. PT STATED, I WILL COME TELL YOU IF I START SEEING AND HEARING THINGS.
--- NOTE | 2020-11-03 23:58 | PC.NURSE ---
At 2100 patient came to nurses station requesting Zyprexa 5mg. Nurse offered Vistaril patient stated that Vistsril was not effective for her. Given patient history, Zyprexa was given.
[2020-11-04] MEDS: metroNIDAZOLE 500 MG Tablet PO ×3 (05:31→20:48)
[2020-11-04 06:00] VITALS: BP 117/79; PULSE 68; RESP 18; TEMP 36.9; O2SAT 97
[2020-11-04] MEDS: lisinopril 20 mg Tablet PO (08:00)
[2020-11-04] MEDS: multivitamin therapeutic Tablet 1 TAB PO (08:00)
[2020-11-04] MEDS: folic acid 1 mg Tablet PO (08:00)
[2020-11-04] MEDS: thiamine 100 mg Tablet PO (08:00)
[2020-11-04] MEDS: hydroCHLOROthiazide 25 mg Tablet PO (08:00)
[2020-11-04] MEDS: nicotine 21 mg Patch 1 PATCH TRANSDERMA (08:02)
[2020-11-04] MEDS: sertraline 100 mg Tablet 150 MG PO (11:49)
--- NOTE | 2020-11-04 12:22 | P.HP_ITS ---
Providers/Chief Complaint Admitting Physician: Loki Purdy MD Primary Care Provider: Atul Wing Chief Complaint: AMS HPI NPU History of Present Illness Roxanne Knowles is a 40 year old female with a history of bipolar disorder, polysubstance abuse, presented to the emergency department after being found running in traffic, positive for amphetamine, cannabis. Patient had elevated blood pressure at the time of admission and required medical stabilization. She has subsequently had normalization of her blood pressure. For full detail of presenting history, please refer to consultation completed by this interviewer 11/03/2020. Patient currently reports improvement in mood symptoms although continues to report some intermittent depressive symptoms exacerbated by ongoing life stressors. Patient continues to be evasive with regards to substance use but is hesitant with regards to post discharge substance treatment. Patient reports lack of compliance with outpatient follow-up but is open to resuming medication management and follow-up for psychiatric care. Patient continues to report ongoing life stressors to include financial and social stressors including recent loss of employment as exacerbating her symptoms/situation. Review of Systems General: Reports: 10 or more systems reviewed and unremarkable except in HPI and below Meds NPU Home Medications Medication Instructions Recorded Confirmed Last Taken Type lisinopril 20 1 tab PO DAILY 30 Days #30 tab 06/04/20 11/03/20 Unknown Rx mg-hydrochlorothiazide 25 mg tablet olanzapine 5 mg tablet 5 mg PO DAILY #30 tab 06/26/20 11/03/20 Unknown Rx sertraline 100 mg tablet 150 mg PO DAILY #45 tab 06/26/20 11/03/20 Unknown Rx Allergies Allergy/AdvReac Type Severity Reaction Status Date / Time No Known Allergies Allergy Verified 06/24/20 16:47 PFSH NPU PFSH: Medical History Anxiety Bipolar disorder Bipolar II disorder Hypertension Other stimulant dependence, uncomplicated Peripheral edema Smoking Surgical History Status post laparoscopic cholecystectomy Family History Denies family history of Anesthesia complication Bleeding disorder Social History Smoking and tobacco status: current every day smoker Alcohol intake: never Lives independently: Yes Household members: family Current occupational status: employed History of recent travel: No Other Psychiatric History: Other Psychiatric History: Please refer to psychiatric consultation completed 11/03/2020 Mental Status Exam MSE Comments: Sitting up in bed, calm, cooperative, interactive, good eye contact Psychomotor activity is neither increased or decreased, no agitation Speech is normal rate and volume, spontaneous, clear articulation, not pressured I feel tired, congruent affect, not labile Alert and oriented to person, place, time, situation Intellectual functioning appears to be average at best per vocabulary, interview Memory and concentration appear to be fair to intact per interview Thought process, linear, no flight of ideas, no looseness of associations Thought content, no delusions, no hallucinations, no suicidal or homicidal ideation Insight and judgment appear to be fair to intact Vitals/I&O/Wt Last Vital Signs Temp 98.4 F 11/04/20 06:00 Pulse 68 11/04/20 06:00 Resp 18 11/04/20 06:00 BP 117/79 11/04/20 06:00 Pulse Ox 97 11/04/20 06:00 Weight last 48 hrs Weight 68.039 kg Weight 68.039 kg Physical Exam Narrative: EXAM NARRATIVE: Hospitalist discharge physical examination was reviewed as part of this evaluation. A&P Assessment and plan (1) Psychosis: Status: Acute (2) Polysubstance abuse: Status: Acute (3) Bipolar II disorder: Status: Acute Additional A&P Information Patient with recent altered mental status, psychosis, history of polysubstance abuse transferred from [facility] secondary to ongoing mood symptoms exacerbated by recent stressors. Patient restarted on home medication which she is tolerating well and denies any interval suicidal ideation. VOLUNTARY ADMIT to inpatient psychiatry CONTINUE current medication, continue to monitor Encourage patient to participate in unit activities to include group sessions and unit milieu Involuntary Hold Information 96 Hour Hold: 96 Hour Involuntary Admission: No Attestations NPU Medical Necessity Statement*: Patient requires psychiatric hospitalization for medication stabilization as well as coordinating for safe discharge to include post discharge psychiatric care. Anticipate hospital stay to exceed 2 midnights Time Spent in Patient Care: Greater than 35 minutes (>than 50% of time spent in counselling and/or direct pt care on unit) . Coding Level of Care Code Acute Director Of Home [facility] H[facility] for Rosalia Holguin Diagnoses Psychosis F29 Polysubstance abuse F19.10 Bipolar II disorder F31.81
[2020-11-04 14:00] VITALS: BP 140/100; PULSE 87; RESP 18; TEMP 36.2; O2SAT 97
--- NOTE | 2020-11-04 14:54 | PC.NURSE ---
took off nicotine patch and gave it to nursing staff. nursing staff disposed of patch properly
[2020-11-04 14:57] LABS: Glucose Point of Care 96 mg/dL (70-110)
--- NOTE | 2020-11-04 15:56 | PC.RESP ---
Smoking Cessation information sent to patient.
[2020-11-04 20:21] VITALS: BP 131/91; PULSE 92; RESP 18; TEMP 36.9; O2SAT 97
[2020-11-04] MEDS: OLANZapine 5 mg TABLET PO (20:48)
--- NOTE | 2020-11-05 00:41 | PC.NURSE ---
PM assessment Pt denies AH/VH, Denies SI/HI, Denies pain, pt is resting in her room. Pt heart/lung sounds are WNL, v/s are normal.
[2020-11-05 06:00] VITALS: BP 126/75; PULSE 72; RESP 18; TEMP 37; O2SAT 96
[2020-11-05] MEDS: metroNIDAZOLE 500 MG Tablet PO ×3 (06:25→21:17)
[2020-11-05] MEDS: sertraline 100 mg Tablet 150 MG PO (08:23)
[2020-11-05] MEDS: folic acid 1 mg Tablet PO (08:24)
[2020-11-05] MEDS: lisinopril 20 mg Tablet PO (08:24)
[2020-11-05] MEDS: multivitamin therapeutic Tablet 1 TAB PO (08:24)
[2020-11-05] MEDS: hydroCHLOROthiazide 25 mg Tablet PO (08:25)
[2020-11-05] MEDS: thiamine 100 mg Tablet PO (08:25)
[2020-11-05 14:00] VITALS: BP 116/73; PULSE 67; RESP 20; TEMP 36.3; O2SAT 96
--- NOTE | 2020-11-05 17:55 | PM.NPN ---
Subjective NPU Subjective: Interval history: Roxanne presents today reporting that she is feeling a little better. She reports that she got into the situation secondary to mental health addiction issues. She was reluctant but ultimately identified the addiction portion of this challenge she is facing. And she identified that she was done with it. However she did not have a very clear or realistic vision of how she was going to prevent this from happening again. We agreed we would work with the treatment team to try to come up with some solutions for aftercare and beyond. Mental Status Exam MSE Comments: This is an overweight versus obese white female in hospital scrubs with limited grooming and adequate eye contact. No abnormal movements except for mild psychomotor retardation. Cooperative with exam in mild distress. Speech was slightly decreased rate and volume. Mood tried to okay, affect subdued and stressed. Thought process organized. Thought content: Patient denied any suicidal or homicidal ideation, there were no delusions reported or noted, she denied any auditory or visual hallucinations attention and concentration appeared reliable but none were formally tested. She is alert and oriented x3. Insight and judgment are limited but improving impulse control is limited. Vitals/I&O/Wt Last Vital Signs Temp 97.7 F 11/05/20 21:19 Pulse 65 11/05/20 21:19 Resp 17 11/05/20 21:19 BP 132/82 11/05/20 21:19 Pulse Ox 96 11/05/20 21:19 A&P Additional A&P Information (1) Psychosis: (2) Polysubstance abuse: (3) Bipolar II disorder: Additional A&P Information Patient with recent altered mental status, psychosis, history of polysubstance abuse transferred from [facility] secondary to ongoing mood symptoms exacerbated by recent stressors. Patient restarted on home medication which she is tolerating well and denies any interval suicidal ideation, showing continued resolution of her likely drug-induced symptoms. 1. Continue current medication. 2. Continue every 15 minute checks for safety. 3. Encourage individual, group and milieu therapy. 4. Encourage sober living treatment after discharge at the highest level of care to which she is willing to commit. Involuntary Hold Information 96 Hour Hold: 96 Hour Involuntary Admission: No Attestations NPU Medical Necessity Statement*: Inpatient hospitalization is medically necessary and the clinically appropriate intervention at this time. We will monitor medication changes indicated. Likely length of stay 1 to 3 days. Coding Level of Care Code Acute Schedule Manager for Rosalia Holguin
[2020-11-05] MEDS: OLANZapine 5 mg TABLET PO (20:25)
[2020-11-05 21:19] VITALS: BP 132/82; PULSE 65; RESP 17; TEMP 36.5; O2SAT 96
--- NOTE | 2020-11-06 02:35 | PC.NURSE ---
PM assessment Pt sleeping at beginning of shift, got up for snack, returned to bed. Pt denies all. Pt stated she is anxious but is feeling better today than previous days. Heart/Lung sounds normal, mood appropriate, cooperative with staff. V/s normal. will continue to monitor
[2020-11-06 06:00] VITALS: BP 125/75; PULSE 57; RESP 16; TEMP 36.6; O2SAT 97
[2020-11-06] MEDS: metroNIDAZOLE 500 MG Tablet PO (06:25)
[2020-11-06] MEDS: hydroCHLOROthiazide 25 mg Tablet PO (08:03)
[2020-11-06] MEDS: sertraline 100 mg Tablet 150 MG PO (08:03)
[2020-11-06] MEDS: multivitamin therapeutic Tablet 1 TAB PO (08:04)
[2020-11-06] MEDS: thiamine 100 mg Tablet PO (08:04)
[2020-11-06] MEDS: folic acid 1 mg Tablet PO (08:04)
[2020-11-06] MEDS: lisinopril 20 mg Tablet PO (08:04)
--- NOTE | 2020-11-06 11:36 | PM.NDC ---
Diagnoses at Discharge Discharge Diagnosis (1) Psychosis: Status: Acute (2) Polysubstance abuse: Status: Acute (3) Bipolar II disorder: Status: Acute Reason for Visit Reason for Visit: AMS Brief History: History of Present Illness Roxanne Knowles is a 40 year old female history of bipolar disorder, polysubstance abuse, presented to the emergency department after being found running in traffic, positive for amphetamine, cannabis. Patient had elevated blood pressure at the time of admission and required medical stabilization. She has subsequently had normalization of her blood pressure. Psychiatry consulted for evaluation and treatment recommendations. Patient is a difficult historian secondary to lack of cooperation initially with interview, she subsequently provides brief responses to interviewer but remains somewhat evasive with regards to questions about suicidality and self-harm. Patient reports ongoing depressive symptoms with low mood, decreased energy and interest, does not provide any temporal relationship of her mood symptoms with substance use but states that she has had multiple stressors to include likely losing her job as well as other financial and family stressors. Per above, does not provide response to whether or not she actively has current suicidal ideation. She does report past suicide attempt by overdose in the past year and a half, reports past self-harm behavior. Per chart review, past [facility] appointments indicate that patient has longstanding history of irritability, interpersonal difficulties, mood and affect lability and suspicious for borderline personality disorder in addition to being treated for her mood disorder. Patient has history of polysubstance abuse but does not provide any information about recent use and does not affirm recent use of methamphetamine or cannabis prior to this admission. She only states that she does not recall the events leading to her hospitalization other than remembering that she saw headlights sometime last night. She reports hearing some auditory hallucinations since this hospitalization, mostly reports muffling sounds, denies hearing any discrete voices, denies any visual hallucinations, reports some delusions of people making fun of her during this hospitalization. 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 Patient states that she is agreeable to transfer to inpatient psychiatry and is agreeable to medication stabilization and treatment. Review of Systems General: Reports: ROS unobtainable due to medical condition Meds Current Medications: Current Medications Generic Name Dose Route Start Last Admin Trade Name Freq PRN Reason Stop Dose Admin Acetaminophen 325 - 650 mg 11/03/20 04:00 11/03/20 04:45 Acetaminophen 32 5 Mg Tablet PO 650 mg Q4H PRN Administration MILD PAIN OR INCR EASE TEMP Folic Acid 1 mg 11/03/20 09:00 11/03/20 08:59 Folic Acid 1 Mg Tablet PO 1 mg DAILY ELEONORA Administration Hydrochlorothiazid e 25 mg 11/03/20 09:00 11/03/20 08:59 Hydrochlorothiaz julita 25 Mg Tablet PO 25 mg DAILY ELEONORA Administration Sodium Chloride 1,000 mls @ 75 ml s/hr 11/03/20 04:00 11/03/20 04:46 Sodium Chloride 0.9% IV 75 mls/hr .[id number] ELEONORA Administration Lisinopril 20 mg 11/03/20 09:00 11/03/20 08:59 Lisinopril 20 Mg Tablet PO 20 mg DAILY ELEONORA Administration Metronidazole 500 mg 11/03/20 04:00 11/03/20 04:46 Metronidazole 50 0 Mg Tablet PO 500 mg Q8H ELEONORA Administration Multivitamins Ther apeutic 1 tab 11/03/20 09:00 11/03/20 08:59 Multivitamin The rapeutic Tablet PO 1 tab DAILY ELEONORA Administration Thiamine Mononitra te 100 mg 11/03/20 09:00 11/03/20 08:59 Thiamine 100 Mg Tablet PO 100 mg DAILY ELEONORA Administration PFSH NPU PFSH: Medical History Anxiety Bipolar disorder Bipolar II disorder Hypertension Other stimulant dependence, uncomplicated Peripheral edema Smoking Surgical History Status post laparoscopic cholecystectomy Family History Denies family history of Anesthesia complication Bleeding disorder Social History Smoking and tobacco status: current every day smoker Alcohol intake: never Substance/Drug Use: current Substance/Drug use type: Marijuana and Methamphetamine Lives independently: Yes Household members: family Current occupational status: employed History of recent travel: No Other Psychiatric History: Other Psychiatric History: Per chart review, patient followed at [facility] for bipolar 2 disorder, patient does not provide any additional details other than she started mental health treatment sometime in her early 20s but not consistently Reports previous psychiatric hospitalization within the past 18 months but does not recall any other details Reports past suicide attempt per above, also reports past episodes of self-harm behavior in the past Hospital Course Hospital Course Roxanne presented to the emergency department with the following report: Chief Complaint: Abdominal Pain Stated Complaint: lower abd pain Time Seen by Provider: 08/24/20 13:27 Source: patient Mode of arrival: ambulatory Limitations: no limitations History of Present Illness: HPI narrative: Last menstrual period was in April 2020 and she said a lot has been going on her life she had not taken noticed. She had done a test which was slightly positive and has taken to others since then including last night and they were both negative. She noticed her lower abdomen is getting bigger and does not know why. She developed right lower quadrant pain yesterday and has gotten a little worse today so she is here to see what is going on. MD elicited complaint: abdominal pain Onset (ago): day(s) (1) Pain Consistency: constant Location: RLQ Severity: moderate Quality: cramping Radiation: none Migration to: no migration Exacerbating factors: nothing Relieving factors: nothing Associated Symptoms: Denies anorexia, belching, bloating, change in bowel habits, change in stool character, chills, coffee ground emesis, constipation, GI cramping, diarrhea, dyspepsia, dysuria, excessive flatus, fever(s), heartburn, hematochezia, hematuria, hematemesis, fecal incontinence, loose stools, melena, nausea, poor appetite, syncope and vomiting Related Data: Date of Last Menstrual Period: 04/05/20. She was admitted to [facility] for definitive treatment of these issues. Psychiatric consult was requested and she was evaluated and transferred to the neuropsychiatric unit with his mother. On the unit she slowly acclimated to the individual, group and milieu therapies provided. Her Zoloft and Zyprexa were continued with good results. She was given Flagyl for an ongoing infection. Ultimately her psychosis resolved that was deemed to be in part at least drug-induced. She was able to contract for safety prior to discharge. During the hospitalization, patient had routine laboratory studies which were within normal limits except for few outliers. Additionally there was a general medical evaluation which was also within normal limits and revealed no new acute processes except for those identified and managed by the hospitalist. Discharge Summary: At the time of discharge, lethality was denied and psychosis was resolving. Mood and anxiety were well managed. Patient endorsed a plan to avoid all drugs of abuse and follow-up with the aftercare recommendations of the treatment team. Patient was evaluated and deemed to be absent credible lethality, and had achieved the maximum benefit from an inpatient hospitalization, so was discharged. Involuntary Hold Information 96 Hour Hold: 96 Hour Involuntary Admission: No Mental Status Exam MSE Comments: This is an overweight versus obese white female in hospital scrubs with appropriate grooming and eye contact. No abnormal movements. Cooperative with exam in no acute distress. Speech was slightly decreased rate and volume. Mood tried to better, glad to go home, affect congruent. Thought process organized. Thought content: Patient denied any suicidal or homicidal ideation, there were no delusions reported or noted, she denied any auditory or visual hallucinations attention and concentration appeared reliable but none were formally tested. She is alert and oriented x3. Insight and judgment are improving, impulse control is limited. Discharge Data Vitals: Last Vital Signs Temp 97.8 F 11/06/20 06:00 Pulse 57 L 11/06/20 06:00 Resp 16 11/06/20 06:00 BP 125/75 11/06/20 06:00 Pulse Ox 97 11/06/20 06:00 Discharge Plan Discharge Patient Disposition: Home Condition: Stable Prescriptions: New metronidazole 500 mg Tablet 500 mg PO Q8H 7 Days Qty: 21 RF: 0 Continued lisinopril-hydrochlorothiazide 20-25 mg tablet 1 tab PO DAILY 30 Days Qty: 30 RF: 5 Zoloft 100 mg tablet 150 mg PO DAILY 30 Days Qty: 45 RF: 1 Zyprexa 5 mg tablet 5 mg PO DAILY 30 Days Qty: 30 RF: 1 Discharge Orders: Discharge Order (Routine); Ordered 11/06/20 Ordered By: Wes Franco Referrals: [facility] [Other] (You will have to go in person to fill out application to be considered for assistance towards your $450 utilities. ) Cheyenne Nunez PMHNP [Staff Physician] - 11/18/20 1:30 pm (hospital follow up will be done over the phone) Alivia Valle DO [Physician] - 02/16/21 1:30 pm Discharge Diet: Regular Discharge Activity: Resume usual activity Patient Instructions: Metronidazole (By mouth), Bipolar Disorder (DC), Brief Psychotic Disorder (DC), Methamphetamine Abuse (DC) Discharge Attestations NPU Time Spent in Discharge Care*: less than 30 min Specific Discharge Activities: Specific discharge activities: educating patient, discussing with case technician/social workers/dc planners, documenting/other paperwork and evaluating patient/reviewing data Coding Level of Care Code Acute Foster Winder for [facility] Fwd Diagnoses Psychosis F29 Polysubstance abuse F19.10 Bipolar II disorder F31.81
[2020-11-06 12:16] VITALS: BP 125/75; PULSE 57; RESP 16; TEMP 36.6; O2SAT 97
== END 2020-11-06 13:22 | disposition home or self-care (01) | DRG 885 ==
LOC: ER 01:17 → MEDSURG 02:46 → NP 15:40
PROVIDERS: Hospitalist; Admitting Provider Internal Medicine; Emergency Provider Emergency Medicine; PCP Family Medicine; Visit Provider Psychiatry & Neurology Psychiatry
DX: F29 Unspecified psychosis not due to a substance or known physiological condition (principal); F31.81 Bipolar II disorder; F15.10 Other stimulant abuse, uncomplicated; F12.10 Cannabis abuse, uncomplicated; I10 Essential (primary) hypertension; D75.1 Secondary polycythemia; A59.01 Trichomonal vulvovaginitis; R31.9 Hematuria, unspecified; F41.9 Anxiety disorder, unspecified; F17.210 Nicotine dependence, cigarettes, uncomplicated
CPT/HCPCS: 12345; 36415; 36416; 70450; 71045; 80053; 80306; 80307; 81001; 81025; 82962; 85025; 86705; 86706; 86709; 86803; 87086; 87340; 87806; 93005; 96372; 99281; 99283; J3411; J7030

== ENCOUNTER 2020-12-14 10:54 | Emergency (ER) | payer SELFPAY ==
[2020-12-14 10:56] VITALS: BP 140/93; PULSE 86; RESP 16; TEMP 37.1; O2SAT 98; BMI 28.3
[2020-12-14 11:26] LABS: Add Urine Microscopic? YES; Bilirubin Urine Neg (Negative); Blood Urine 2+ (Negative); Glucose Urine UA Norm (Normal); Ketones Urine Negative (Negative); Leukocyte Esterase Urine 2+ (Negative); Nitrate Urine Negative (Negative); Protein Urine Neg (Negative); Specific Gravity, Urine 1.005 (1.005-1.030); Urine Appearance Clear (CLEAR); Urine Color Straw (Yellow); Urobilinogen Urine Norm (Negative); pH Urine 6.5 (5-7)
[2020-12-14 11:26] LABS: Basophils % 0.2 %; Eosinophils % 0.1 %; Hematocrit 43.4 % (37.0-47.0); Hemoglobin 14.3 g/dL (11.5-15.3); Lymphocytes # 0.8 10^3/uL (0.8-4.8); Lymphocytes % 6.2 %; Mean Corpuscular HGB Conc 32.9 g/dL (30.0-36.0); Mean Corpuscular Hemoglobin 32.6 pg (28.0-34.0); Mean Corpuscular Volume 99.1 fL (81-99); Mean Platelet Volume 10.7 fL (7.4-10.4); Monocytes # 1.4 10^3/uL (0.2-0.9); Monocytes % 10.5 %; Neutrophils # 10.81 10^3/uL (1.8-7.7); Neutrophils % 82.5 %; Nucleated Red Blood Cells % 0 %; Platelet Count 226 10^3/cmm (130-400); Red Blood Count 4.38 10^6/uL (4.1-5.3); Red Cell Distribution Width 12.2 % (12.1-15.1); White Blood Count 13.1 10^3/uL (4.0-10.0)
[2020-12-14 11:27] VITALS: BP 140/93; PULSE 84; RESP 20; O2SAT 97
[2020-12-14 11:29] LABS: RBC Urine 0-4 /hpf (0-2); Squamous Epithelial Cell Urine 0-4 /hpf (0-5); WBC Urine 25-40 /hpf (0-5)
[2020-12-14 11:30] LABS: Add Urine Culture? Yes; Bacteria Urine 2+ /hpf
[2020-12-14 11:41] LABS: Alanine Aminotransferase 9 U/L (0-33); Albumin Level 3.6 g/dL (3.5-5.2); Alkaline Phosphatase 91 IU/L (35-105); Anion Gap 14.7 (5-19); Aspartate Amino Transferase 12 U/L (0-32); Blood Urea Nitrogen 7 mg/dL (6-20); Calcium 9.2 mg/dL (8.5-10.5); Carbon Dioxide 27 mmol/L (22-29); Chloride 100 mmol/L (98-107); Globulin 3.7 g/dL (1.3-4.6); Glomerular Filtration Rate 109.6 mL/min (90-130); Glucose 98 mg/dL (65-115); Lipase 14 U/L (13-60); Osmolality Calculated 284 mOsm/kg (285-295); Potassium 3.7 mmol/L (3.5-5.1); Sodium 138 mmol/L (136-145); Total Bilirubin 0.6 mg/dL (0.15-1.2); Total Protein 7.3 g/dL (6.6-8.7)
[2020-12-14] MEDS: ondansetron 2 mg/ML SDV 2 mL 4 MG IVP (11:47)
--- NOTE | 2020-12-14 11:49 | CT_ITS ---
WS: [id number] CT ABDOMEN AND PELVIS WITH CONTRAST HISTORY: Abdominal pain for 5 weeks. TECHNIQUE: Imaging performed of the abdomen and pelvis with IV contrast. Single phase imaging of the abdomen. Coronal and sagittal reformats are submitted. All CT scans at [facility] use at least one of these dose optimization techniques: automated exposure control; mA and/or kV adjustment per patient size (includes targeted exams where dose is matched to clinical indication); or iterativ e reconstruction. IV CONTRAST: Omnipaque 300; 95 mL IV. Oral contrast: No DLP: 1233.8 mGy.cm COMPARISON: 12/02/2019 Lower thorax: Dependent changes and interstitial subsegmental areas of atelectasis at the lung bases. Heart is normal size. No hiatal hernia. Liver/biliary system: Normal size liver. Focal area of hepatic steatosis along the falciform ligament . There is also mild intrahepatic duct dilatation which is stable and probably physiologic. Gallbladder: Status post cholecystectomy. Pancreas: Normal. Spleen: Normal. Adrenal glands: Normal. Right kidney: Abnormal enhancement throughout the RIGHT kidney. There are areas of decreased enhancem ent and perfusion. Multifocal areas of abnormal decreased enhancement. There is also moderate perinep hric stranding. Diffuse periureteral stranding and inflammation although the ureter is not significan tly dilated. No definite calcifications in the ureter. Left kidney: Normally distended kidney. There is a large nonobstructing calcification in the upper po le measuring 7 mm. Aorta: Mild atherosclerosis with no aneurysm. Lymphadenopathy: None. Free fluid: Small amount of free fluid in the cul-de-sac. GI tract: The appendix is normal. Moderate fecal retention with no obstruction. Abdominal wall: Unremarkable abdominal wall. No hernia. Pelvis: Seen best on the sagittal reformats is low-attenuation within the cervix and the cervix appea rs prominent. New finding since the prior CTs. Tubular structure in the posterior RIGHT adnexa was pr esent on prior studies and may be a hydrosalpinx. There is also mild diffuse bladder wall thickening which is irregular. Bones: Mild straightening of the normal lumbar lordosis. CT/CT abdomen pelvis w con* [id number] IMPRESSION: 1. Moderately severe RIGHT multifocal nephritis. Additional inflammatory mark es surrounding the kidney and the ureter without significant dilatation. 2. Nonobstructing 7 mm calcification LEFT kidney. 3. Edematous enlarged cervix. Correlate for cervicitis or neoplasm. If recent Pap smear has not been performed this should be obtained to exclude neoplasm. 4. Diffuse thickening and irregularity involving the bladder probably related to the urinary tract infection. 5. Prior cholecystectomy. 6. Tubular structure in the RIGHT pelvis has been present on prior studies and may be a simple hydrosalpinx.
[2020-12-14] MEDS: sodium chloride 0.9% 1,000 ML 999 ML IV (11:54)
--- NOTE | 2020-12-14 11:56 | W.ED.ABDPA2 ---
HPI - Abdominal Pain General: Chief Complaint: Abdominal Pain Stated Complaint: Abd pain x 5 days Time Seen by Provider: 12/14/20 10:59 History of Present Illness: HPI narrative: 40-year-old female presents emergency room complaining of right upper quadrant and right flank pain with fever for the last 5 days. She reports a T-max at home of 104 degrees. EMS had a temp of 99 and she has a normal temp when arriving here. She does complain of dysuria urgency and frequency. She has previously had a cholecystectomy. She has noted some mild hematuria she has no history of renal stones. MD elicited complaint: abdominal pain and flank pain Pertinent past history: past UTI Onset (ago): day(s) (5) Pain Consistency: constant Location: RUQ and R flank Severity: moderate Quality: cramping Radiation: suprapubic Migration to: no migration Exacerbating factors: movement Relieving factors: rest Associated Symptoms: Denies anorexia, belching, bloating, change in bowel habits, change in stool character, chills, coffee ground emesis, constipation, GI cramping, diarrhea, dyspepsia, dysuria, excessive flatus, fever(s), heartburn, hematochezia, hematuria, hematemesis, fecal incontinence, loose stools, melena, nausea, poor appetite, syncope and vomiting Related Data: Date of Last Menstrual Period: 11/16/20 Review of Systems Const: Denies: fever(s) or chills ENMT: Denies: throat pain, ear or mastoid pain, nasal discharge or nasal congestion Card: Denies: syncope Resp: Denies: dyspnea, productive cough or non-productive cough GI: Denies: nausea, vomiting, hematemesis, coffee ground emesis, heartburn, constipation, bloating, GI cramping, belching, excessive flatus, fecal incontinence, change in bowel habits, change in stool character, hematochezia or melena : Denies: dysuria or hematuria Skin/Breast: Denies: rash or pruritus PFSH ED PFSH: Medical History Anxiety Bipolar disorder Bipolar II disorder Hypertension Other stimulant dependence, uncomplicated Peripheral edema Smoking Surgical History (Updated 12/15/20 @ 00:00 by ) Status post laparoscopic cholecystectomy Family History Denies family history of Anesthesia complication Bleeding disorder Social History Smoking and tobacco status: current every day smoker Alcohol intake: never Lives independently: Yes Household members: family Current occupational status: employed History of recent travel: No Female Reproductive History: Date of last menstrual period: 11/16/20 Physical Exam Const: COMMON NORMALS: average body habitus, patient oriented x3 and alert GENERAL APPEARANCE: cooperative, comfortable, well kempt and well developed NUTRITIONAL APPEARANCE: obese ORIENTATION/CONSCIOUSNESS: Yes awake, Yes oriented to person and Yes oriented to place HENMT: COMMON NORMALS: normocephalic, atraumatic and EAC's normal HEAD & SCALP: normocephalic and atraumatic EXTERNAL AUDITORY CANAL: EAC's normal Neck/C-Spine: COMMON NORMALS: no meningeal signs Resp: COMMON NORMALS: normal respiratory effort, No retractions, No use of accessory muscles and clear to auscultation bilaterally AUSCULTATION: clear to auscultation bilaterally Cardio: COMMON NORMALS: regular rate and regular rhythm RATE: regular rate RHYTHM: regular rhythm HEART SOUNDS: no murmurs GI: COMMON NORMALS: Normal to inspection, nondistended, normoactive bowel sounds present, Soft to palpation and No hepatosplenomegaly present PALPATION: Yes Soft to palpation and Yes No hepatosplenomegaly present : BLADDER/KIDNEY EXAM: Yes CVA tenderness Back/Pelvis: GENERAL BACK: Yes CVA tenderness CVA tenderness: right LUMBAR SPINE/LOWER BACK: Yes normal to inspection Extremity: COMMON NORMALS: no clubbing, cyanosis or edema, no calf tenderness and no pedal edema Neuro: COMMON NORMALS: patient oriented x3 SENSORIUM/ORIENTATION: Yes alert, Yes oriented to person and Yes oriented to place MENINGEAL SIGNS: Yes no meningeal signs Psych: APPEARANCE: Yes well kempt Skin: COMMON NORMALS: no rashes or lesions noted and turgor normal GENERAL SKIN EXAM: no rashes or lesions noted and turgor normal Course Vital Signs: Vital signs: Vital Signs Temperature 98.7 F 12/14/20 10:56 Pulse Rate 88 12/14/20 13:57 Respiratory Rate 16 12/14/20 13:57 Blood Pressure 130/90 12/14/20 13:57 Pulse Oximetry 97 12/14/20 13:57 MDM - Abdominal Pain MDM Narrative: Medical decision making narrative: Discussed possible admission with the patient and she declines she would rather go home. Patient given a dose of IV Rocephin in the ER. We will start her on Cipro hydrocodone for pain discharge her home have her follow-up with her primary care doctor few days. If she is not improving or worsens return to the emergency room for admission. Lab Data: Labs: Lab Results 12/14/20 12/14/20 12/14/20 Range/Units 11:01 11:12 11:12 WBC 13.1 H (4.0-10.0) 10^3/ uL RBC 4.38 (4.1-5.3) 10^6/u L Hgb 14.3 (11.5-15.3) g/dL Hct 43.4 (37.0-47.0) % MCV 99.1 H (81-99) fL MCH 32.6 (28.0-34.0) pg MCHC 32.9 (30.0-36.0) g/dL RDW 12.2 (12.1-15.1) % Plt Count 226 (130-400) 10^3/c mm MPV 10.7 H (7.4-10.4) fL Neut % (Auto) 82.5 % Lymph % (Auto) 6.2 % [place] % (Auto) 10.5 % Eos % (Auto) 0.1 % Baso % (Auto) 0.2 % Neut # (Auto) 10.81 H (1.8-7.7) 10^3/u L Lymph # (Auto) 0.8 (0.8-4.8) 10^3/u L [place] # (Auto) 1.4 H (0.2-0.9) 10^3/u L Eos # (Auto) 0.0 (0.0-0.8) 10^3/u L Baso # (Auto) 0.0 (0.0-0.1) 10^3/u L Nucleated RBC % (a uto) 0 % Nucleated RBCs # 0.0 /100WBC Sodium 138 (136-145) mmol/L Potassium 3.7 (3.5-5.1) mmol/L Chloride 100 (98-107) mmol/L Carbon Dioxide 27 (22-29) mmol/L Anion Gap 14.7 (5-19) BUN 7 (6-20) mg/dL Creatinine 0.6 (0.5-0.9) mg/dL GFR Calculation 109.6 (90-130) mL/min Glucose 98 (65-115) mg/dL Calculated Osmolal ity 284 L (285-295) mOsm/k g Calcium 9.2 (8.5-10.5) mg/dL Total Bilirubin 0.6 (0.15-1.2) mg/dL AST 12 (0-32) U/L ALT 9 (0-33) U/L Alkaline Phosphata se 91 (35-105) IU/L Total Protein 7.3 (6.6-8.7) g/dL Albumin 3.6 (3.5-5.2) g/dL Globulin 3.7 (1.3-4.6) g/dL Lipase 14 (13-60) U/L Urine Color Straw (Yellow) Urine Appearance Clear (CLEAR) Urine pH 6.5 (5-7) Ur Specific Gravit y 1.005 (1.005-1.030) Urine Protein Neg (Negative) Urine Glucose (UA) Norm (Normal) Urine Ketones Negative (Negative) Urine Blood 2+ H (Negative) Urine Nitrate Negative (Negative) Urine Bilirubin Neg (Negative) Urine Urobilinogen Norm (Negative) mg/dL Ur Leukocyte Elise ase 2+ H (Negative) Urine RBC 0-4 H (0-2) /hpf Urine WBC 25-40 H (0-5) /hpf Ur Squamous Epith Cells 0-4 H (0-5) /hpf Amorphous Sediment Not Reportable Urine Bacteria 2+ H (NONE) /hpf Discharge Plan Discharge Patient Disposition: Home Clinical Impression: Pyelonephritis Condition: Stable Prescriptions: New Cipro 500 mg tablet 500 mg PO BID Qty: 14 RF: 0 hydrocodone-acetaminophen 5-325 mg tablet 1 tab PO Q6H PRN (Reason: pain) Qty: 20 RF: 0 Zofran 4 mg tablet 4 mg PO Q6H PRN (Reason: nausea and vomiting) Qty: 20 RF: 0 No Action lisinopril-hydrochlorothiazide 20-25 mg tablet 1 tab PO DAILY 30 Days Qty: 30 RF: 5 sertraline [Zoloft] 100 mg tablet 150 mg PO DAILY 30 Days Qty: 45 RF: 1 olanzapine [Zyprexa] 5 mg tablet 5 mg PO DAILY 30 Days Qty: 30 RF: 1 Discharge Orders: Discharge ED (Routine); Ordered 12/14/20 Ordered By: Kraig Le Referrals: Atul Wing [Primary Care Provider] - Discharge Diet: Usual diet Discharge Activity: Resume usual activity Patient Instructions: Opioid Safety Activity Restrictions/Additional Instructions: Return to the ER if you have worsening problems increasing fever persistent pain. Coding Level of Care Code ED [employer] Clerk for [employer] Fwd Exam Comprehensive
[2020-12-14] MEDS: cefTRIAXone 1,000 MG in sodium chloride 0.9% (plus) 50 ML 100 MG IV (12:07)
[2020-12-14 13:57] VITALS: BP 130/90; PULSE 88; RESP 16; O2SAT 97
== END 2020-12-14 14:00 | disposition home or self-care (01) ==
PROVIDERS: Emergency Provider Family Medicine; PCP Family Medicine
DX: N12 Tubulo-interstitial nephritis, not specified as acute or chronic (principal); I10 Essential (primary) hypertension; F17.210 Nicotine dependence, cigarettes, uncomplicated
CPT/HCPCS: 36415; 74177; 80053; 81001; 83690; 85025; 87040; 87077; 87086; 87186; 96365; 96375; 99284; J0696; J2405; J7030; Q9967

== ENCOUNTER → 2023-04-23 09:52 | Outpatient (BNVA) | payer BC, SELFPAY | PROVIDERS: PCP Family Medicine; Visit Provider Emergency Medicine | DX: N92.0 Excessive and frequent menstruation with regular cycle (principal) | CPT/HCPCS: 81000; 81025; 87086 ==

== ENCOUNTER 2024-12-04 09:37 | Emergency (ER) | payer OTHER, SELFPAY ==
[2024-12-04 09:48] VITALS: BP 132/90; PULSE 57; RESP 17; TEMP 36.9; O2SAT 98; BMI 32.1
--- NOTE | 2024-12-04 10:22 | ED_ITS ---
HPI - Abdominal Pain 2 General: Chief Complaint: Abdominal Pain Stated Complaint: abd pain / vaginal discharge Time Seen by Provider: 12/04/24 09:44 Source: patient Mode of arrival: ambulatory Limitations: no limitations History of Present Illness: 44-year-old female states that over the last few days she has been having some lower abdominal cramping she states that today she started having some yellow discharge as well she states it does have a smell odor. She denies any fever states she had a UTI couple weeks ago treated with Cipro. She had some lower back cramping as well. Rates the pain 3 out of 10 Associated Symptoms: Denies chills, diarrhea, fever(s), nausea and vomiting Related Data Home Medications ?Medication ?Instructions ?Recorded ?Confirmed lisinopril 20 2 tab PO DAILY 09/09/2211/10 mg-hydrochlorothiazide 25 mg tablet metoprolol tartrate 100 mg tablet 100 mg PO BID 12/04/24 levothyroxine 50 mcg tablet 50 mcg PO DAILY 12/04/24 0 12/04/24 Previous Rx's ?Medication ?Instructions ?Recorded metronidazole 500 mg tablet 500 mg PO BID 7 days #14 t abs 12/04/24 Allergies Allergy/AdvReac Type Severity Reaction Status Date / Time buspirone Allergy Mild Sick Verified 12/04/24 09:54 paroxetine Allergy Mild Depression Verified 12/04/24 09:54 Review of Systems 2 Const: Denies: fever(s), chills, body aches or change in appetite ENMT: Denies: throat pain or dental pain Card: Denies: chest pain Resp: Denies: dyspnea GI: Reports: abdominal pain; Denies: nausea, vomiting or diarrhea : Reports: vaginal discharge Musc: Reports: back pain; Denies: neck pain Skin/Breast: Denies: rash Neuro: Denies: headache(s) PFS ED 2 PFSH: Medical History (Updated 12/04/24 @ 12:34 by Sincere Obrien MD) Generalized anxiety disorder Nicotine dependence, cigarettes, uncomplicated Cannabis dependence, in remission Other stimulant dependence, in remission Peripheral edema Smoking Other stimulant dependence, uncomplicated Bipolar II disorder Bipolar disorder Anxiety Hypertension Surgical History Status post laparoscopic cholecystectomy Family History Denies family history of Anesthesia complication Bleeding disorder Social History Smoking and tobacco/nicotine status: current every day tobacco/nicotine user Alcohol intake: never Substance/Drug Use: current Lives independently: Yes Household members: family Current occupational status: employed Female Reproductive History: Spontaneous abortions: No Physical Exam 2 Const: COMMON NORMALS: no acute distress, patient oriented x3 and healthy appearing HENMT: COMMON NORMALS: normocephalic and atraumatic HEAD & SCALP: n ormocephalic and atraumatic Eye: COMMON NORMALS: Equal, round and reactive pupils present and EOMs intact bilaterally PUPIL: Yes Equal, round and reactive pupils present Neck/C-Spine: COMMON NORMALS: full ROM and supple Chest: COMMONS NORMALS: normal inspection of the chest Resp: COMMON NORMALS: normal respiratory effort, No retractions, No use of accessory muscles and clear to auscultation bilaterally AUSCULTATION: clear to auscultation bilaterally Cardio: COMMON NORMALS: regular rate, regular rhythm and No murmurs present (Cardio) RATE: regular rate RHYTHM: regular rhythm GI: COMMON NORMALS: Normal to inspection, nondistended, normoactive bowel sounds present, Soft to palpation, non-tender and no masses PALPATION: Yes Soft to palpation : OTHER: Yellow discharge is noted from cervix no cervical motion tenderness on exam no signs of PID Extremity: COMMON NORMALS: normal to inspection and full ROM Neuro: COMMON NORMALS: patient oriented x3, moves all extremities and no focal motor deficits Psych: COMMON NORMALS: mental status grossly normal, Normal thought process present and cooperative THOUGHT PROCESS: Normal thought process present Skin: COMMON NORMALS: no rashes or lesions noted and no wounds GENERAL SKIN EXAM: no rashes or lesions noted Course 2 Vital Signs: Vital signs: Vital Signs Temperature 98.4 F 12/04/24 09:48 Pulse Rate 57 L 12/04/24 09:48 Respiratory Rate 17 12/04/24 09:48 Blood Pressure 132/90 12/04/24 09:48 Pulse Oximetry 98 12/04/24 09:48 Oxygen Delivery Me thod Room Air 12/04/24 09:48 MDM - Abdominal Pain Medical Decision Making Patient presents here with vaginal discharge she did test positive for trichomonas she had no signs of PID will prescribe her Flagyl did not give her warnings of not using alcohol with the Flagyl she is follow-up with PCP and return if worsening she understands agrees to plan Medical Records I reviewed the patient's medical records. Lab Data I reviewed the patient's lab results. 12/04/24 10:30 12/04/24 10:30 Labs/Radiology: Laboratory Results WBC 8.82 10^3/uL (3.29-11.43) 12/04/24 10:30 RBC 4.99 10^6/uL (3.85-5.65) 12/04/24 10:30 Hgb 16.10 g/dL (11.27-16.99) 12/04/24 10:30 Hct 48.2 % (36-47) H 12/04/24 10:30 MCV 96.6 fl (85-98) 12/04/24 10:30 MCH 32.3 pg (27-33) 12/04/24 10:30 MCHC 33.4 g/dL (30-55) 12/04/24 10:30 RDW 12.9 % (12.1-15.1) 12/04/24 10:30 Plt Count 305 10^3/cmm (157-399) 12/04/24 10:30 MPV 9.9 fL (7.4-10.4) 12/04/24 10:30 Neut % (Auto) 66.0 % 12/04/24 10:30 Lymph % (Auto) 24.4 % 12/04/24 10:30 [place] % (Auto) 7.8 % 12/04/24 10:30 Eos % (Auto) 1.0 % 12/04/24 10:30 Baso % (Auto) 0.6 % 12/04/24 10:30 Neut # (Auto) 5.82 10^3/uL (1.8-7.7) 12/04/24 10:30 Lymph # (Auto) 2.2 10^3/uL (0.8-4.8) 12/04/24 10:30 [place] # (Auto) 0.7 10^3/uL (0.2-0.9) 12/04/24 10:30 Eos # (Auto) 0.1 10^3/uL (0.0-0.8) 12/04/24 10:30 Baso # (Auto) 0.1 10^3/uL (0.0-0.1) 12/04/24 10:30 Nucleated RBC % (auto) 0 % 12/04/24 10:30 Nucleated RBCs # 0.0 /100WBC 12/04/24 10:30 Sodium 138 mmol/L (136-145) 12/04/24 10:30 Potassium 3.8 mmol/L (3.5-5.1) 12/04/24 10:30 Chloride 100 mmol/L (98-107) 12/04/24 10:30 Carbon Dioxide 28 mmol/L (22-29) 12/04/24 10:30 Anion Gap 13.8 (5-19) 12/04/24 10:30 BUN 15 mg/dL (6-20) 12/04/24 10:30 Creatinine 0.7 mg/dL (0.5-0.9) 12/04/24 10:30 GFR Calculation 90.1 mL/min (90-130) 12/04/24 10:30 Glucose 90 mg/dL (65-115) 12/04/24 10:30 Calculated Osmolality 286 mOsm/kg (285-295) 12/04/24 10:30 Calcium 9.8 mg/dL (8.5-10.5) 12/04/24 10:30 Total Bilirubin 0.7 mg/dL (0.15-1.2) 12/04/24 10:30 AST 17 U/L (0-32) 12/04/24 10:30 ALT 17 U/L (0-33) 12/04/24 10:30 Alkaline Phosphatase 90 U/L (35-105) 12/04/24 10:30 Total Protein 8.1 g/dL (6.6-8.7) 12/04/24 10:30 Albumin 4.7 g/dL (3.5-5.2) 12/04/24 10:30 Globulin 3.4 g/dL (1.3-4.6) 12/04/24 10:30 Lipase 33 U/L (13-60) 12/04/24 10:30 Urine Color Yellow (Yellow) 12/04/24 10:00 Urine Appearance Clear (CLEAR) 12/04/24 10:00 Urine pH 7.0 (5-7) 12/04/24 10:00 Ur Specific [place] 1.006 (1.005-1.030) 12/04/24 10:00 Urine Protein Negative (Negative) 12/04/24 10:00 Urine Glucose (UA) Negative (Normal) 12/04/24 10:00 Urine Ketones Negative (Negative) 12/04/24 10:00 Urine Blood Negative (Negative) 12/04/24 10:00 Urine Nitrate Negative (Negative) 12/04/24 10:00 Urine Bilirubin Negative (Negative) 12/04/24 10:00 Urine Urobilinogen 0.2 mg/dL (Negative) 12/04/24 10:00 Ur Leukocyte Esterase Trace (Negative) A 12/04/24 10:00 Urine RBC None /hpf (0-2) 12/04/24 10:00 Urine WBC 0-4 /hpf (0-5) H 12/04/24 10:00 Ur Squamous Epith Cells 0-4 /hpf (0-5) H 12/04/24 10:00 Amorphous Sediment Not Reportable 12/04/24 10:00 Urine Bacteria None /hpf (NONE) 12/04/24 10:00 Urine Mucus None /hpf 12/04/24 10:00 C.trachomatis RNA (TMA) Cancelled 12/04/24 10:42 Chlamydia/GC Comment Cancelled 12/04/24 10:42 N. gonorrhoeae (PCR) Not detected 12/04/24 10:00 N.gonorrhoeae RNA (TMA) Cancelled 12/04/24 10:42 T. vaginalis Amp RNA Cancelled 12/04/24 10:42 All radiology interpretation(s) finalized by discharge Discharge Plan Discharge Patient Disposition: Home Clinical Impression: Trichomonal cervicitis Condition: Stable Prescriptions: New metronidazole 500 mg tablet 500 mg PO BID 7 Days Qty: 14 0RF No Action lisinopril-hydrochlorothiazide 20-25 mg tablet 2 tab PO DAILY metoprolol tartrate 100 mg tablet 100 mg PO BID levothyroxine 50 mcg tablet 50 mcg PO DAILY Discharge Orders: Discharge ED (Routine); Ordered 12/04/24 Ordered By: Sincere Obrien Discharge Diet: Advance as tolerated Discharge Activity: Resume usual activity Patient Instructions: Trichomoniasis - Female Print Language: Guamanian Coding Level of Care Code 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
[2024-12-04 10:27] LABS: Bilirubin Urine Negative (Negative); Blood Urine Negative (Negative); Glucose Urine UA Negative (Normal); Ketones Urine Negative (Negative); Leukocyte Esterase Urine Trace (Negative); Nitrate Urine Negative (Negative); Protein Urine Negative (Negative); Specific Gravity, Urine 1.006 (1.005-1.030); Urine Appearance Clear (CLEAR); Urine Color Yellow (Yellow); Urobilinogen Urine 0.2 mg/dL (Negative)
[2024-12-04 10:36] LABS: Basophils # 0.1 10^3/uL (0.0-0.1); Basophils % 0.6 %; Eosinophils # 0.1 10^3/uL (0.0-0.8); Hematocrit 48.2 % (36-47); Lymphocytes # 2.2 10^3/uL (0.8-4.8); Lymphocytes % 24.4 %; Mean Corpuscular HGB Conc 33.4 g/dL (30-55); Mean Corpuscular Hemoglobin 32.3 pg (27-33); Mean Corpuscular Volume 96.6 fl (85-98); Mean Platelet Volume 9.9 fL (7.4-10.4); Monocytes # 0.7 10^3/uL (0.2-0.9); Monocytes % 7.8 %; Neutrophils # 5.82 10^3/uL (1.8-7.7); Nucleated Red Blood Cells % 0 %; Platelet Count 305 10^3/cmm (157-399); Red Blood Count 4.99 10^6/uL (3.85-5.65); Red Cell Distribution Width 12.9 % (12.1-15.1); White Blood Count 8.82 10^3/uL (3.29-11.43)
[2024-12-04 10:41] LABS: Add Urine Microscopic? YES
[2024-12-04 10:47] LABS: WBC Urine 0-4 /hpf (0-5)
[2024-12-04 10:48] LABS: Add Urine Culture? No; Squamous Epithelial Cell Urine 0-4 /hpf (0-5)
[2024-12-04 10:54] LABS: Alanine Aminotransferase 17 U/L (0-33); Albumin Level 4.7 g/dL (3.5-5.2); Alkaline Phosphatase 90 U/L (35-105); Anion Gap 13.8 (5-19); Aspartate Amino Transferase 17 U/L (0-32); Blood Urea Nitrogen 15 mg/dL (6-20); Calcium 9.8 mg/dL (8.5-10.5); Carbon Dioxide 28 mmol/L (22-29); Chloride 100 mmol/L (98-107); Creatinine Clr Calc Pharmacy 94.3651; Globulin 3.4 g/dL (1.3-4.6); Glomerular Filtration Rate 90.1 mL/min (90-130); Glucose 90 mg/dL (65-115); Lipase 33 U/L (13-60); Osmolality Calculated 286 mOsm/kg (285-295); Potassium 3.8 mmol/L (3.5-5.1); Sodium 138 mmol/L (136-145); Total Bilirubin 0.7 mg/dL (0.15-1.2); Total Protein 8.1 g/dL (6.6-8.7)
[2024-12-04] MEDS: azithromycin 250 mg Tablet 1000 MG PO (11:00)
[2024-12-04] MEDS: cefTRIAXone 250 MG in water for injection-sterile 0.9 ML 999 MG IM (11:01)
[2024-12-04 11:55] LABS: Neisseria Gonorrhea NOT DETECTED
[2024-12-04 12:55] VITALS: BP 168/141; PULSE 60; RESP 17; TEMP 36.8; O2SAT 99
[2024-12-04 13:28] LABS: Chlamydia Trachomatis NOT DETECTED
== END 2024-12-04 12:58 | disposition home or self-care (01) ==
PROVIDERS: Family Medicine; Emergency Provider Emergency Medicine
DX: A59.09 Other urogenital trichomoniasis (principal); Z72.0 Tobacco use; I10 Essential (primary) hypertension
CPT/HCPCS: 36415; 80053; 81001; 83690; 85025; 87210; 87491; 87591; 96372; 99284; E0352; J0696; Q0144